=== PATIENT | male | born 1960 | race Caucasian/White ===

== ENCOUNTER 2016-03-16 13:44 | Inpatient (IN) | payer OTHER ==
[~2016-03-16] VITALS: Ht 167.6 cm; Wt 86.4 kg
[2016-03-16] MEDS ORDERED: FLUO20CA38 PO (20:05)
[2016-03-16] MEDS ORDERED: SOD CHLORIDE 0.9% 1,000 ML IV STA (20:14)
[2016-03-16] MEDS ORDERED: ENALAPRILAT 1.25 MG INJ IV ONE (20:30)
--- NOTE | 2016-03-16 20:46 | RADRPT ---
PROCEDURE: XR Chest AP portable CLINICAL INDICATION: Abdominal pain TECHNIQUE: An AP portable radiograph of the chest was submitted. COMPARISON: None. FINDINGS: Support Hardware: None Cardiovascular: The cardiovascular silhouette appears unremarkable. Lung [place]: The lung [place]on appear clear with no nodule, alveolar infiltrate, for a interstitial pr ominence evident. Pleural Spaces: No pneumothorax or pleural effusion is identified. Osseous Structures: Degenerative changes are seen within the mid thoracic spine. Soft Tissues: The soft tissues appear unremarkable. IMPRESSION: Unremarkable portable chest. Physician Sarah Date Time Electronically viewed and signed by Physician Sarah on 03/16/2016 20:45 RH/
[2016-03-16] MEDS ORDERED: ONDANSETRON 4 MG INJ IV STA (21:17)
[2016-03-16] MEDS ORDERED: morphine 4 MG/ML VIAL IV STA (21:17)
[2016-03-16 21:18] LABS: ADD SCAN DIFF NO
[2016-03-16 21:23] LABS: BASOPHILS % 0.3 % (0.0-2.0); EOSINOPHILS # 0.8 10^3/ul (0.0-0.5); EOSINOPHILS % 8.8 % (0.0-7.0); HEMATOCRIT 48.3 % (42.0-52.0); HEMOGLOBIN 16.2 g/dl (14.0-18.0); LYMPHOCYTES # 2.2 10^3/ul (0.8-2.9); LYMPHOCYTES % 25.5 % (15.0-51.0); MEAN CORPUSCULAR HEMOGLOBIN 30.2 pg (29.0-33.0); MEAN CORPUSCULAR HGB CONC 33.5 g/dl (32.0-37.0); MEAN CORPUSCULAR VOLUME 89.9 fl (82.0-101.0); MEAN PLATELET VOLUME 10.7 fl (7.4-10.4); MONOCYTE # 0.6 10^3/ul (0.3-0.9); MONOCYTES % 7.2 % (0.0-11.0); PLATELET COUNT 249 10^3/UL (140-415); RED BLOOD COUNT 5.37 10^6/ul (4.70-6.10); RED CELL DISTRIBUTION WIDTH 12.9 % (11.5-14.5); WHITE BLOOD COUNT 8.6 10^3/ul (4.8-10.8)
[2016-03-16 21:31] LABS: INR 0.9; PROTIME 12.1 Sec (12.2-14.2); PT RATIO 0.9
[2016-03-16 21:34] LABS: ALBUMIN 4.1 g/dl (3.3-4.9); CHLORIDE 103 mmol/L (97-110); SODIUM 142 mmol/L (135-144)
[2016-03-16 21:37] LABS: ALBUMIN/GLOBULIN RATIO 1.46; ALKALINE PHOSPHATASE 70 IU/L (42-121); ANION GAP 16 (8-16); ASPARTATE AMINO TRANSFERASE 37 IU/L (15-46); BILIRUBIN,INDIRECT 0.2 mg/dl (0-1.1); BILIRUBIN,TOTAL 0.2 mg/dl (0.2-1.3); BLOOD UREA NITROGEN 20 mg/dl (7-20); CARBON DIOXIDE 27 mmol/L (21-31); CREATININE 0.67 mg/dl (0.61-1.24); TOTAL PROTEIN 6.9 g/dl (6.1-8.1)
[2016-03-16 21:38] LABS: ALANINE AMINOTRANSFERASE 31 IU/L (13-69); CALCIUM 9.3 mg/dl (8.4-10.2); GLUCOSE 162 mg/dl (70-220)
[2016-03-16 21:50] LABS: TROPONIN-I < 0.012 ng/ml (0.00-0.12)
[2016-03-16] MEDS ORDERED: SOD CHLORIDE 0.9% 100 ML ONE (21:56)
[2016-03-16] MEDS ORDERED: IOHEXOL 0 ML ONE (21:56)
[2016-03-16] MEDS ORDERED: IOHEXOL 300MG/ML 150 ML BTL ONE (21:57)
--- NOTE | 2016-03-16 22:33 | RADRPT ---
AMENDMENT: 03/16/2016 11:02:59 PM Edgardo Allan M.D Additional clinical history of recent acupuncture treatment provided. Evaluate for soft tissue or e pidural abscess. No soft tissue abscess or gross evidence of acute inflammatory process. Minimal subcutaneous soft t issue stranding in the left paraspinal mass lateral to the midline and a left at approximately the l evel of T1. Correlate clinically with site of recent acupuncture treatment. No gross evidence of epidural abscess. Evaluation is limited given the type of examination. If the re is high clinical concern for epidural abscess. MRI would be more sensitive for further evaluatio n. Results were discussed with Gurdeep Chu 03/16/2016 11:02:37 PM . PROCEDURE: CTA Neck. CLINICAL INDICATION: Bilateral arm paresthesias. TECHNIQUE: The study was performed utilizing a multidetector CT scanner. Direct spiral 1 mm axial sections were obtained through the neck with the use of 120 ml Omnipaque 300 intravenous contrast m aterial. Coronal and sagittal as well as maximal intensity projection reformations were obtained.CT DI: 18.18 mGy and DLP: 748.89 mGy.cm.One or more of the following dose reduction techniques were uti lized: Automated exposure control, adjustment of the mA and/or kV according to patient size, use of iterative reconstruction technique. COMPARISON: No prior studies are available for comparison. FINDINGS: Aortic arch: The aortic arch is normal in caliber. Atherosclerotic calcification of the aortic arch. Normal appea spencer of the origin of the great vessels. Common carotid arteries: The common carotid arteries are patent and normal in caliber bilaterally. Internal carotid arteries: JIL/ECA: Normal appearance of the internal carotid artery bulb. The distal internal carotid artery is patent and normal in caliber. Rule marked tortuosity of the distal extracranial rule internal carotid yasir ry.. No evidence of hemodynamically significant stenosis. External carotid artery and its branches are normal patent and normal in caliber. LICA/ECA : Normal appearance of the internal carotid artery bulb. The distal internal carotid artery is patent and normal in caliber. Moderate tortuosity of the proximal internal carotid artery. No evidence of hemodynamically significant stenosis. External carotid artery and its branches are normal patent an d normal in caliber. Vertebral arteries: The vertebral arteries are patent and normal in caliber. Dominant left vertebral artery. IMPRESSION: Unremarkable CT angiogram of the extracranial carotid vasculature. RPTAT:AAJJ Physician Mariam Date Time Electronically viewed and signed by Castillo Allan Physician on 03/16/2016 23:04 ALEXANDRA/
[2016-03-16] MEDS ORDERED: HYDROmorphONE 1 MG/ML SYG IV STA (22:36)
--- NOTE | 2016-03-16 22:44 | RADRPT ---
PROCEDURE: CTA Brain. CLINICAL INDICATION: Evaluate for epidural abscess. TECHNIQUE: The study was performed utilizing a multidetector CT scanner. Direct spiral 0.65 mm ax ial sections were obtained through the intracranial vasculature with the use of 120 ml of Omnipaque 300 nonionic intravenous contrast material. Coronal and sagittal MPRs as well as maximal intensity projection reformations were obtained. 3D images were also made. The CTDIvol is 18.18 mGy and th e DLP is 748.89 mGycm. One or more of the following dose reduction techniques were utilized: Automa óscar exposure control, adjustment of the mA and/or kV according to patient size, use of iterative rec onstruction technique. COMPARISON: No prior studies are available for comparison. FINDINGS: No abnormal extra-axial fluid collection or pathologic enhancement to suggest epidural abscess or in tracranial enhancing parenchymal lesion. The internal carotid arteries are patent and normal in caliber. The anterior cerebral and middle ce rebral arteries are patent and normal in caliber. The anterior and posterior communicating arteries are patent. The posterior cerebral arteries are patent and normal in caliber. The basilar artery and visualized cerebellar arteries are patent and normal in caliber The vertebral arteries are patent and normal in caliber. Dominant left vertebral artery . No intracranial aneurysm or vascular malformation is identified. IMPRESSION: 1. No evidence of epidural abscess, abnormal extra-axial collection or parenchymal pathologic enhanc ement or mass. 2. Normal CT angiogram of the intracranial vasculature. RPTAT:AAJJ Physician Mariam Date Time Electronically viewed and signed by Physician Mariam on 03/16/2016 22:43 ALEXANDRA/
--- NOTE | 2016-03-16 23:19 | ERA ---
ER Documentation Chief Complaint Date/Time DATE: 03/16/16 TIME: 23:02 Chief Complaint numbness to hands/feet; burning in extremities with joint pain HPI 56-year-old man with a long history of sciatica presents with 5 days of new onset bilateral upper extremity weakness and paresthesia, which began about 5 days after beginning acupuncture therapy. He states acupuncture needles were placed to the cervical spine and by his third session, which was 5 days ago he began experiencing weakness to his arms and hands as well as paresthesias. He denies previous episodes of weakness or paresthesias, denies neck pain, no headache or blurry vision, no chest pain or shortness of breath, no fevers or chills. ROS All systems reviewed and are negative except as per history of present illness. Medications Home Meds Reported Medications Fluoxetine Hcl* (Prozac*) 20 Mg Capsule, 20 MG PO DAILY, CAP 03/16/16 Allergies Allergies: Coded Allergies: No Known Allergy (Unverified , 03/16/16) PMhx/Soc Chronic back pain and sciatica, anxiety Medical and Surgical Hx: pt denies Medical Hx, pt denies Surgical Hx Hx Alcohol Use: No Hx Substance Use: No Hx Tobacco Use: No Smoking Status: Never smoker FmHx Family History: No diabetes Physical Exam Vitals Vital Signs Date Time Temp Pulse Resp B/P Pulse Ox O2 Delivery O2 Flow Rate FiO2 03/16/16 19:50 98.3 78 20 157/100 100 Room Air 03/16/16 19:47 76 20 157/100 98 Room Air 03/16/16 13:50 99.2 86 18 168/98 97 Physical Exam GENERAL: Well-developed, well-nourished, well-hydrated, in no apparent distress , looks nontoxic in appearance. Afebrile HEENT: Moist mucous membranes, pink conjunctiva, no cervical spine tenderness or step-off deformities, no goiter, no jaundice or icterus, extraocular movements intact without pain. No submandibular induration, and no pharyngeal erythema NEURO: Alert and oriented 3, cranial nerves II through XII intact bilaterally, pupils equal round reactive to light, strength is 4/5 to the upper extremities bilaterally with a diminished bartenders strength bilaterally both flexion and extension to the elbow and shoulders are affected. CARDIAC: Regular rate and rhythm, no murmurs rubs or gallops LUNGS: Clear bilaterally no wheezing crackles or stridor ABDOMEN: Soft nontender, no guarding, no rigidity, no rebound, no psoas sign no obturator sign. Normoactive bowel sounds. No pulsatile or tender abdominal mass was noted. SKIN: Warm and dry to touch, no abrasions, contusions, or hematomas, no lacerations, no ecchymosis, no target lesions, and without ulcers. There is no soft tissue erythema or edema to the posterior neck EXTREMITIES: No clubbing cyanosis or edema, calves are bilaterally symmetrical, no Homans sign, no popliteal cord sign. Distal pulses equal and bilateral PSYCH: Normal affect without agitation or irritability Result Diagram: 03/16/16201403/16/162014 Results 24 hrs Laboratory Tests Test 03/16/16 20:15 Alanine Aminotransferase (ALT/SGPT) 31IU/L Albumin 4.1g/dl Albumin/Globulin Ratio 1.46 Alkaline Phosphatase 70IU/L Anion Gap 16 Aspartate Amino Transf (AST/SGOT) 37IU/L Basophils # 0.010^3/ul Basophils % 0.3% Blood Urea Nitrogen 20mg/dl Calcium Level 9.3mg/dl Carbon Dioxide Level 27mmol/L Chloride Level 103mmol/L Creatinine 0.67mg/dl Direct Bilirubin 0.00mg/dl Eosinophils # 0.810^3/ul Eosinophils % 8.8% Globulin 2.80g/dl Glucose Level 162mg/dl Hematocrit 48.3% Hemoglobin 16.2g/dl INR International Normalized Ratio 0.90 Indirect Bilirubin 0.2mg/dl Lipase 98U/L Lymphocytes # 2.210^3/ul Lymphocytes % 25.5% Mean Corpuscular Hemoglobin 30.2pg Mean Corpuscular Hemoglobin Concent 33.5g/dl Mean Corpuscular Volume 89.9fl Mean Platelet Volume 10.7fl Monocytes # 0.610^3/ul Monocytes % 7.2% Neutrophils # 5.010^3/ul Neutrophils % 58.0% Nucleated Red Blood Cells # 0.010^3/ul Nucleated Red Blood Cells % 0.0/100WBC Platelet Count 80202^3/UL Potassium Level 4.0mmol/L Prothrombin Time 12.1Sec Prothrombin Time Ratio 0.9 Red Blood Count 5.3710^6/ul Red Cell Distribution Width 12.9% Sodium Level 142mmol/L Total Bilirubin 0.2mg/dl Total Protein 6.9g/dl Troponin I < 0.012ng/ml White Blood Count 8.610^3/ul Current Medications Medications (Trade) Dose Ordered Sig/Hannah Route PRN Reason Start Time Stop Time Status Last Admin Dose Admin Sodium Chloride (NS) 1,000 ml @ 1,000 mls/hr Q1H STAT IV 03/16/16 20:14 03/16/16 21:13 DC 03/16/16 20:37 Enalaprilat (Vasotec Iv) 1.25 mg ONCE ONCE IV 03/16/16 20:30 03/16/16 20:31 DC 03/16/16 20:38 Morphine Sulfate (morphine) 4 mg ONCE STAT IV 03/16/16 21:17 03/16/16 21:18 DC 03/16/16 21:39 Ondansetron HCl (Zofran Inj) 4 mg ONCE STAT IV 03/16/16 21:17 03/16/16 21:18 DC 03/16/16 21:39 IV Flush 10 ml 10 ml STK-MED ONCE .ROUTE 03/16/16 21:56 03/16/16 21:57 DC 03/16/16 22:20 Sodium Chloride 100 ml @ ud STK-MED ONCE .ROUTE 03/16/16 21:56 03/16/16 21:57 DC 03/16/16 22:21 Iohexol (Omnipaque) 0 ml @ ud STK-MED ONCE .ROUTE 03/16/16 21:56 03/16/16 21:57 DC Iohexol (Omnipaque 300mg/ ml) 150 ml STK-MED ONCE .ROUTE 03/16/16 21:57 03/16/16 21:58 DC 03/16/16 22:21 Hydromorphone HCl (Dilaudid) 1 mg ONCE STAT IV 03/16/16 22:36 03/16/16 22:37 DC Procedures/[facility] IV line was established patient was placed on cardiac/vascular sonographer rhythm strip revealed a sinus rhythm at about 60 bpm with upright P and T waves. Patient was afebrile. EKG performed, read by me: 64 bpm, normal sinus rhythm, normal axis, no acute ST segment changes, narrow QRS complex, with good R-wave progression in precordial leads. One AP view of the chest performed, read by me reveals no acute infiltrates, normal mediastinum, sharp costophrenic and cardiac borders, no air under the diaphragm. Otherwise unremarkable chest x-ray. Patient was extremely hypertensive at presentation I treated him here with enalapril 1.25 mg IV 1. CBC and electrolytes are normal, liver function tests are normal, troponin was negative CT angiogram of the brain and neck was performed, although not the most optimal study it was an initial screening exam to help rule in a spinal epidural abscess or soft tissue infection of the posterior neck. Critical cervical spine stenosis could also be diagnosed with this study. Please refer to radiologist dictation for full report, although no inflammatory or infectious pathology was noted. An obvious cervical spinal canal stenosis could not be identified. Recommendation was for MR imaging of the cervical spine, which I immediately ordered. I consulted the neurosurgeon applications analyst Dr. Liriano, who also recommended MRI. I will call him with the results. Patient received 1 L normal saline intravenously, morphine 4 mg IV, Zofran 4 mg IV with good response. For continued low back pain I administered hydromorphone 1 mg IV 1. Patient will be admitted pending MRI results. Besides critical cervical spinal canal stenosis or spinal epidural abscess, polyneuropathy and other inflammatory conditions have been considered. Further studies to be deferred to inpatient team in consultation with neurosurgeon and neurologist. Departure Diagnosis: Primary Impression: Bilateral arm weakness Additional Impressions: Paresthesias Lumbago with sciatica Qualified Code: M54.41 - Chronic bilateral low back pain with right-sided sciatica Hypertension Qualified Code: I10 - Essential hypertension Condition: SANG Leon MD Mar 16, 2016 23:13
--- NOTE | 2016-03-17 02:05 | RADRPT ---
PROCEDURE: MRI cervical spine without contrast CLINICAL INDICATION: Bilateral upper extremity weakness. TECHNIQUE: MRI examination of the cervical spine was performed on a high-field MRI system. Sagitt al T1, T2, T2 fat suppression, axial GRE and T2-weighted images were produced. COMPARISON: CT angio neck 03/16/2016 FINDINGS: There is maintenance of height of the vertebral bodies. There is reversal of the normal cervical lo rdosis. Alignment is otherwise maintained. There is reactive marrow changes at the C6-7 disk space compatible with chronic degenerative changes. Bone marrow signal intensity is otherwise within carrie l limits. No masses are identified within the spinal canal. The prevertebral soft tissues are un remarkable. The foramen Magnum is unremarkable. C2/3: The disk space is normal. There is no disk bulge or protrusion. There is no central canal o r neuroforaminal stenosis. C3/4: There is mild disk space narrowing. There is a prominent diffuse posterior disk osteophyte c omplex measuring up to 3 mm with effacement and deformity of the ventral aspect of the cervical cord .. There is moderate central canal stenosis. There is loss of CSF surrounding the cord. There is t here is no definite neural foraminal stenosis. There is abnormal hyperintense intramedullary signal within the cervical cord centered at the C3-4 disk protrusion compatible with cord edema. C4/5: The disk space is normal. There is no disk bulge or protrusion. There is no central canal o r neuroforaminal stenosis. C5/6: There is mild disk space narrowing. There is mild posterior disk bulge eccentric to the left ventral aspect of thecal sac, abutting the left ventral cord. There is mild ventral cord deformity . There is CSF posterior to cord. Mild central canal and left neural foraminal stones. There is n o right neural foraminal stenosis.. C6/7: There is disk space narrowing with endplate reactive changes described above. There is mild diffuse posterior disk bulge. Mild central canal stenosis. Mild to moderate right neural foraminal stenosis. There is no left neural foraminal stenosis.. C7/T1: The disk space is normal. There is no disk bulge or protrusion. There is no central canal or neuroforaminal stenosis. IMPRESSION: 1. Multilevel disk degenerative changes. 2. Focal posterior disk osteophyte complex at C3-4 with associated posterior disk protrusion causin g canal stenosis and cord compression. Associated cord edema. 3. Smaller posterior disk bulge at C5-6 causing mild ventral cord for a without edema. Associated mild central canal and left neural foraminal cells. 4. C6-7 with posterior disk bulge with mild central canal and mild to moderate right neural foramin al stenosis. 5. Evaluation for epidural abscess is limited by lack of intravenous contrast material. No abnorma l soft tissue mass within the spinal canal to suggest epidural abscess. 6. Reversal normal cervical lordosis most commonly seen with muscle spasm. Findings discussed with Dr. Cerrato 03/17/2016 at 0200 RPTAT: HMVK .Yunior Vuong MD, MD Date Time Electronically viewed and signed by .Yunior Vuong MD, on 03/17/2016 02:05 .K/
[2016-03-17 02:26] VITALS: TEMP 98
[2016-03-17 02:55] VITALS: BP 130/102; RESP 18
[2016-03-17] MEDS ORDERED: ACETAMINOPHEN 325 MG TAB PO PRN (03:00)
[2016-03-17] MEDS: morphine 4 MG/ML VIAL IV PRN ×4 (03:28→21:21)
[2016-03-17 03:57] VITALS: Ht 167.6 cm; Wt 86.4 kg
[2016-03-17 06:18] LABS: ADD SCAN DIFF NO; BASOPHILS % 0.3 % (0.0-2.0); EOSINOPHILS # 0.7 10^3/ul (0.0-0.5); EOSINOPHILS % 9.3 % (0.0-7.0); HEMATOCRIT 44.8 % (42.0-52.0); HEMOGLOBIN 15.1 g/dl (14.0-18.0); LYMPHOCYTES # 1.8 10^3/ul (0.8-2.9); LYMPHOCYTES % 23.1 % (15.0-51.0); MEAN CORPUSCULAR HEMOGLOBIN 30.6 pg (29.0-33.0); MEAN CORPUSCULAR HGB CONC 33.7 g/dl (32.0-37.0); MEAN CORPUSCULAR VOLUME 90.7 fl (82.0-101.0); MEAN PLATELET VOLUME 10.3 fl (7.4-10.4); MONOCYTE # 0.5 10^3/ul (0.3-0.9); MONOCYTES % 6.1 % (0.0-11.0); NEUTROPHIL # 4.8 10^3/ul (1.6-7.5); NEUTROPHILS % 60.9 % (39.0-77.0); PLATELET COUNT 237 10^3/UL (140-415); RED BLOOD COUNT 4.94 10^6/ul (4.70-6.10); RED CELL DISTRIBUTION WIDTH 12.8 % (11.5-14.5); WHITE BLOOD COUNT 7.9 10^3/ul (4.8-10.8)
--- NOTE | 2016-03-17 06:37 | HP ---
Date/Time of Note Date/Time of Note DATE: 03/17/16 TIME: 06:26 Assessment/Plan VTE Prophylaxis VTE Prophylaxis Intervention: SCD's Assessment/Plan Assessment/Plan IMPRESSION 1. Cervical Cord Compression with associated edema 2. Bilateral Upper Extremity Weakness/Paresthesia: 2/2 above 3. Hx of Anxiety 4. Hx of Pre-Diabetes PLAN Will start Decadron Pain mgmt Awaiting Neurosurg Evaluation PRN anti-anxiety Check A1c HPI/ROS Admit Date/Time Admit Date/Time Mar 16, 2016 at 22:58 Hx of Present Illness This is a 56-year-old man with hx of anxiety, Pre-diabetes and a long history of sciatica presents with 5 days of new onset bilateral upper extremity weakness and paresthesia, which began about 5 days after beginning acupuncture therapy. He states acupuncture needles were placed to the cervical spine and by his third session, which was 5 days ago he began experiencing weakness to his arms and hands as well as paresthesias. He has been using wheel chair. He denies previous episodes of weakness or paresthesias, denies neck pain, no headache or blurry vision, no chest pain or shortness of breath, no fevers or chills. In ER: CT Head nad Neck was neg for acute findings, but Cervical MRI showed the following: Dr. Liriano the neurosurgeon was consulted by ER physician. 1. Multilevel disk degenerative changes. 2. Focal posterior disk osteophyte complex at C3-4 with associated posterior disk protrusion causing canal stenosis and cord compression. Associated cord edema. 3. Smaller posterior disk bulge at C5-6 causing mild ventral cord for a without edema. Associated mild central canal and left neural foraminal cells. 4. C6-7 with posterior disk bulge with mild central canal and mild to moderate right neural foraminal stenosis. 5. Evaluation for epidural abscess is limited by lack of intravenous contrast material. No abnormal soft tissue mass within the spinal canal to suggest epidural abscess. 6. Reversal normal cervical lordosis most commonly seen with muscle spasm. PMH/Family/Social Past Medical History 1. sciatica 2. anxiety 3. pre-diabetes Medical History: other Social History Alcohol Use: none Smoking Status: Never smoker Drug Use: none Exam/Review of Systems Vital Signs Vitals Vital Signs Date Time Temp Pulse Resp B/P Pulse Ox O2 Delivery O2 Flow Rate FiO2 03/17/16 02:55 18 130/102 99 03/17/16 02:54 97.6 62 03/17/16 02:26 Room Air Exam Constitutional: alert, oriented, well developed Head: atraumatic, normocephalic Eyes: EOMI, PERRL Neck: non-tender, supple Respiratory: clear to auscultation, normal air movement Cardiovascular: nl pulses, regular rate and rhythm Gastrointestinal: non-tender, soft Extremities: normal pulses Neurological: other (bilateral upper ext with decreased strength) Labs Result Diagram: 03/17/1651103/16/162014 Medications Medications Current Medications Morphine Sulfate (morphine) 4 mg Q4H PRN IV SEVERE PAIN Last administered on t 03:28; Admin Dose 4 MG; Start 03/17/16 at 03:00 Acetaminophen (Tylenol Tab) 650 mg Q6H PRN PO PAIN AND OR ELEVATED TEMP; Start 03/17/16 at 03:00 Acetaminophen/ Hydrocodone Bitart ([place] (5/325)) 1 tab Q6H PRN PO MODERATE PAIN; Start 03/17/16 at 03:00 Heparin Sodium (Porcine) (Heparin (5000 Units/0.5 ml)) 5,000 unit BID SC ; Start 03/17/16 at 09:00 Fluoxetine HCl (Prozac) 20 mg DAILY PO ; Start 03/17/16 at 09:00 ONIEL NESS MD Mar 17, 2016 06:37
[2016-03-17] MEDS: DEXAMETHASONE 4 MG/ML 1 ML INJ IV SCH ×4 (06:39→23:12)
[2016-03-17 06:51] LABS: ALBUMIN 3.6 g/dl (3.3-4.9)
[2016-03-17 06:52] LABS: POTASSIUM 3.9 mmol/L (3.5-5.1)
[2016-03-17 06:54] LABS: ALBUMIN/GLOBULIN RATIO 1.56; BILIRUBIN,INDIRECT 0.2 mg/dl (0-1.1); BILIRUBIN,TOTAL 0.2 mg/dl (0.2-1.3); CREATININE 0.68 mg/dl (0.61-1.24); TOTAL PROTEIN 5.9 g/dl (6.1-8.1)
[2016-03-17 06:55] LABS: CALCIUM 8.6 mg/dl (8.4-10.2); CHOL/HDL RATIO 3.2 RATIO
[2016-03-17 08:02] VITALS: BP 127/82; PULSE 58; RESP 16
[2016-03-17] MEDS: FLUOXETINE 20 MG CAP PO SCH (08:30)
[2016-03-17] MEDS ORDERED: HEPARIN 5,000 UNIT/0.5 ML SYG SC SCH (09:00)
[2016-03-17] MEDS: HYDROCODONE/APAP (5/325) TAB PO PRN ×2 (09:27→19:21)
--- NOTE | 2016-03-17 10:05 | CONS ---
Date/Time of Note Date/Time of Note DATE: 03/17/16 TIME: 09:57 Assessment/Plan Assessment/Plan Additional Assessment/Plan Clinical picture and imaging suggestive of central cord syndrome. I had a long conversation with the patient in which I recommend anterior cervical discectomy and fusion at C3-4; he may also benefit from ACDF at C5-6 given underlying radicular complaints but that is less urgent. Given subacute clinical presentation I do not believe surgery is emergent, but I have recommended that it be treated urgently (ie this admission). He understands the risks of surgery to include esophageal and vocal cord/ nerve injury, CSF leak, wound infection, and neurologic deficit or even paralysis. All questions were answered. The patient stated that he is unwilling to agree to this recommended plan until he discusses with his and family. He will let us know his decision. In the meantime I will try to secure OR time Sunday. 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 He states that his pain radiates into the shoulder bilaterally and he has numbness in the firt three digits of both hands at baseline (the complaints for which he sought acupuncture tx). After a recent fall he noticed promotional advertising assistant weakness. MRI in the ER shows C5-6 degenerative disc disease and foraminal stenosis but also a large right sided C3-4 HNP with cord compression and cord signal change at this level. He denies any PMHX. 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 Lower extremities 5 /5 bilaterally. reflexes +++ & Barrera's sign is present. No clonus. Results Result Diagram: 03/17/16 0512 03/17/16511 Results 24 hrs Laboratory Tests Test 03/16/16 20:15 03/17/16 05:12 Alanine Aminotransferase (ALT/SGPT) 31 34 Albumin 4.1 3.6 Albumin/Globulin Ratio 1.46 1.56 Alkaline Phosphatase 70 56 Anion Gap 16 14 Aspartate Amino Transf (AST/SGOT) 37 27 Basophils # 0.0 0.0 Basophils % 0.3 0.3 Blood Urea Nitrogen 20 18 Calcium Level 9.3 8.6 Carbon Dioxide Level 27 29 Chloride Level 103 104 Creatinine 0.67 0.68 Direct Bilirubin 0.00 0.00 Eosinophils # 0.8 H 0.7 H Eosinophils % 8.8 H 9.3 H Globulin 2.80 2.30 Glucose Level 162 100 # Hematocrit 48.3 44.8 Hemoglobin 16.2 15.1 INR International Normalized Ratio 0.90 Indirect Bilirubin 0.2 0.2 Lipase 98 Lymphocytes # 2.2 1.8 Lymphocytes % 25.5 23.1 Mean Corpuscular Hemoglobin 30.2 30.6 Mean Corpuscular Hemoglobin Concent 33.5 33.7 Mean Corpuscular Volume 89.9 90.7 Mean Platelet Volume 10.7 H 10.3 Monocytes # 0.6 0.5 Monocytes % 7.2 6.1 Neutrophils # 5.0 4.8 Neutrophils % 58.0 60.9 Nucleated Red Blood Cells # 0.0 0.0 Nucleated Red Blood Cells % 0.0 0.0 Platelet Count 249 237 Potassium Level 4.0 3.9 Prothrombin Time 12.1 L Prothrombin Time Ratio 0.9 Red Blood Count 5.37 4.94 Red Cell Distribution Width 12.9 12.8 Sodium Level 142 143 Total Bilirubin 0.2 0.2 Total Protein 6.9 5.9 #L Troponin I < 0.012 White Blood Count 8.6 7.9 Cholesterol Level 175 Cholesterol/HDL Ratio 3.2 HDL Cholesterol 54 Hemoglobin A1c 6.1 H LDL Cholesterol, Calculated 105 Triglycerides Level 81 Medications Medications Current Medications Morphine Sulfate (morphine) 4 mg Q4H PRN IV SEVERE PAIN Last administered on t 08:30; Admin Dose 4 MG; Start 03/17/16 at 03:00 Acetaminophen (Tylenol Tab) 650 mg Q6H PRN PO PAIN AND OR ELEVATED TEMP; Start 03/17/16 at 03:00 Acetaminophen/ Hydrocodone Bitart ([place] (5/325)) 1 tab Q6H PRN PO MODERATE PAIN Last administered on 03/17/16 09:27; Admin Dose 1 TAB; Start 03/17/16 at 03:00 Fluoxetine HCl (Prozac) 20 mg DAILY PO Last administered on 03/17/16 08:30; Admin Dose 20 MG; Start 03/17/16 at 09:00 Dexamethasone (Decadron) 4 mg Q6 IV Last administered on 03/17/16 06:39; Admin Dose 4 MG; Start 03/17/16 at 06:30 MARCIA YOUNG MD Mar 17, 2016 10:04
--- NOTE | 2016-03-17 14:15 | PN ---
Date/Time of Note Date/Time of Note DATE: 03/17/16 TIME: 14:02 Assessment/Plan VTE Prophylaxis VTE Prophylaxis Intervention: SCD's Assessment/Plan Assessment/Plan 1. Cervical Cord Compression, needs surgery, I had a long talk with the patient about the risk and complications from cord compression, patient is not made his decision yet 2. Multilevel disk degenerative changes. follow up with Dr. Liriano 3. Hx of Anxiety 4. Hx of Pre-Diabetes Subjective 24 Hr Interval Summary Free Text/Dictation stronger on both arms today, still has poor balance on walking and tingling on left lower extremity Exam/Review of Systems Vital Signs Vitals Vital Signs Date Time Temp Pulse Resp B/P Pulse Ox O2 Delivery O2 Flow Rate FiO2 03/17/16 08:02 98.8 58 16 127/82 97 Room Air Exam Constitutional: alert, oriented, well developed Head: atraumatic, normocephalic Eyes: EOMI, PERRL, nl conjunctiva, nl lids, nl sclera ENMT: nl external ears & nose, nl lips & teeth, nl nasal mucosa & septum Neck: non-tender, supple Respiratory: clear to auscultation, normal air movement, No congested cough, No crackles/rales, No diminished breath sounds, No intercostal retraction, No labored breathing, No other, No respirations, No tactile fremitus, No wheezing Cardiovascular: nl pulses, regular rate and rhythm, No S3, No S4, No bruits, No diastolic murmur, No edema, No gallop, No irregular rhythm, No jugular venous distention (JVD), No murmurs/extra sounds, No other, No rub, No systolic murmur Gastrointestinal: nl liver, spleen, non-tender, soft, No ascites, No bowel sounds, No distended, No firm, No hepatomegaly, No mass , No other, No rebound or guarding, No splenomegaly, No surgical scars, No tender Musculoskeletal: nl extremities to inspection Neurological: SENIOR CONSTRUCTION ESTIMATOR II-XII intact, nl mental status, nl speech, other (both hands 4/5) Skin: nl turgor, rash or lesions Lymph: nl lymph nodes Results Result Diagram: 03/17/1651103/17/1612 Results 24 hrs Laboratory Tests Test 03/16/16 20:15 03/17/16 05:12 Alanine Aminotransferase (ALT/SGPT) 31 34 Albumin 4.1 3.6 Albumin/Globulin Ratio 1.46 1.56 Alkaline Phosphatase 70 56 Anion Gap 16 14 Aspartate Amino Transf (AST/SGOT) 37 27 Basophils # 0.0 0.0 Basophils % 0.3 0.3 Blood Urea Nitrogen 20 18 Calcium Level 9.3 8.6 Carbon Dioxide Level 27 29 Chloride Level 103 104 Creatinine 0.67 0.68 Direct Bilirubin 0.00 0.00 Eosinophils # 0.8 H 0.7 H Eosinophils % 8.8 H 9.3 H Globulin 2.80 2.30 Glucose Level 162 100 # Hematocrit 48.3 44.8 Hemoglobin 16.2 15.1 INR International Normalized Ratio 0.90 Indirect Bilirubin 0.2 0.2 Lipase 98 Lymphocytes # 2.2 1.8 Lymphocytes % 25.5 23.1 Mean Corpuscular Hemoglobin 30.2 30.6 Mean Corpuscular Hemoglobin Concent 33.5 33.7 Mean Corpuscular Volume 89.9 90.7 Mean Platelet Volume 10.7 H 10.3 Monocytes # 0.6 0.5 Monocytes % 7.2 6.1 Neutrophils # 5.0 4.8 Neutrophils % 58.0 60.9 Nucleated Red Blood Cells # 0.0 0.0 Nucleated Red Blood Cells % 0.0 0.0 Platelet Count 249 237 Potassium Level 4.0 3.9 Prothrombin Time 12.1 L Prothrombin Time Ratio 0.9 Red Blood Count 5.37 4.94 Red Cell Distribution Width 12.9 12.8 Sodium Level 142 143 Total Bilirubin 0.2 0.2 Total Protein 6.9 5.9 #L Troponin I < 0.012 White Blood Count 8.6 7.9 Cholesterol Level 175 Cholesterol/HDL Ratio 3.2 HDL Cholesterol 54 Hemoglobin A1c 6.1 H LDL Cholesterol, Calculated 105 Triglycerides Level 81 Medications Medications Current Medications Morphine Sulfate (morphine) 4 mg Q4H PRN IV SEVERE PAIN Last administered on 12:38; Admin Dose 4 MG; Start 03/17/16 at 03:00 Acetaminophen (Tylenol Tab) 650 mg Q6H PRN PO PAIN AND OR ELEVATED TEMP; Start 03/17/16 at 03:00 Acetaminophen/ Hydrocodone Bitart ([place] (5/325)) 1 tab Q6H PRN PO MODERATE PAIN Last administered on 2/10/17at 09:27; Admin Dose 1 TAB; Start 03/17/16 at 03:00 Fluoxetine HCl (Prozac) 20 mg DAILY PO Last administered on 03/17/16 08:30; Admin Dose 20 MG; Start 03/17/16 at 09:00 Dexamethasone (Decadron) 4 mg Q6 IV Last administered on 03/17/16 12:38; Admin Dose 4 MG; Start 03/17/16 at 06:30 MI BUSTOS MD Mar 17, 2016 14:12
[2016-03-17 19:21] VITALS: BP 145/93; PULSE 81; RESP 18
[2016-03-18] MEDS: HYDROCODONE/APAP (5/325) TAB PO PRN ×4 (04:00→22:22)
[2016-03-18] MEDS: DEXAMETHASONE 4 MG/ML 1 ML INJ IV SCH ×3 (06:01→18:08)
[2016-03-18 07:52] VITALS: BP 165/101; RESP 18
[2016-03-18] MEDS: FLUOXETINE 20 MG CAP PO SCH (09:47)
[2016-03-18] MEDS: morphine 4 MG/ML VIAL IV PRN ×3 (09:48→19:49)
[2016-03-18 11:21] VITALS: BP 140/97; PULSE 67
--- NOTE | 2016-03-18 16:35 | PN ---
DATE: 03/18/2016 INTERNAL MEDICINE FOLLOWUP SUBJECTIVE: Chart reviewed. Events noted. Patient is now agreeable to undergo surgery. Dr. Bryan wan will be informed about the decision. The patient also complains of constipation. PHYSICAL EXAMINATION: VITAL SIGNS: Blood pressure 140/97, pulse 67, respirations 18, temperature 98.8. HEENT: Pupils are equal and reactive to light. NECK: Supple. No JVD noted, no cervical adenopathy, no carotid bruits heard. LUNGS: Fair breath sounds bilaterally. CARDIOVASCULAR: S1, S2 normal. ABDOMEN: Soft, nontender. No organomegaly or masses noted. EXTREMITIES: No clubbing, cyanosis, or edema noted. NEUROLOGICAL: Overall strength in the upper extremity slowly improving. LABS: None today. IMPRESSION: 1. Cervical cord compression. 2. Severe multivite disk degenerative changes in cervical spine. 3. History of anxiety. 4. History of diabetes. 5. Elevated blood pressure. PLAN: 1. Dr. Liriano will be informed about the patient's decision to undergo surgery. 2. Clonidine p.r.n. 3. Laxatives. 4. Follow up lab 5. Discussed with RN in detail. Dictated By: EDWARD SOLANO MD, MA/GURU Conf#: [id number] DID#: [id number]
[2016-03-18 19:25] VITALS: BP 143/94; RESP 20
[2016-03-19] MEDS: DEXAMETHASONE 4 MG/ML 1 ML INJ IV SCH ×5 (00:27→23:18)
[2016-03-19] MEDS: morphine 4 MG/ML VIAL IV PRN ×4 (00:28→19:36)
[2016-03-19] MEDS: HYDROCODONE/APAP (5/325) TAB PO PRN ×3 (04:43→23:18)
[2016-03-19 07:45] VITALS: BP 157/102; RESP 18
[2016-03-19] MEDS: SENNA TAB PO SCH ×2 (08:36→20:29)
[2016-03-19] MEDS: FLUOXETINE 20 MG CAP PO SCH (08:36)
[2016-03-19] MEDS: DOCUSATE SODIUM 100 MG CAP PO SCH ×2 (08:36→20:28)
--- NOTE | 2016-03-19 11:07 | PN ---
DATE: 03/19/2016 INTERNAL MEDICINE FOLLOWUP SUBJECTIVE: Chart reviewed. No significant events noted. The patient currently on room air, satur ating 98%, and does not appear in acute distress. OBJECTIVE: VITAL SIGNS: Blood pressure 143/94, pulse 66, respirations 20, temperature 99.1. HEENT: Pupils are equal and reactive to light. NECK: Supple. No JVD noted, no cervical lymphadenopathy noted, no carotid bruits heard. LUNGS: Fair breath sounds bilaterally. CARDIOVASCULAR: S1, S2 normal. ABDOMEN: Soft, nontender. No organomegaly or masses noted. EXTREMITIES: No clubbing, cyanosis, or edema noted. LABORATORY DATA: No labs today. IMPRESSION: 1. Cervical cord compression. 2. Severe multilevel disk degenerative changes of the cervical spine. 3. History of anxiety. 4. History of diabetes. 5. Hypertension. RECOMMENDATIONS: 1. ____ will be planning on surgery early next week. 2. Clonidine p.r.n. 3. Laxatives. 4. Follow up labs. 5. Discussed with RN. Dictated By: EDWARD SOLANO MD, MA/GURU Conf#: [id number] DID#: [id number]
[2016-03-19] MEDS: D5-NS + KCL 20 MEQ 1,000 ML IV SCH (14:22)
[2016-03-19 20:27] VITALS: BP 135/91; RESP 18
[2016-03-20] MEDS: D5-NS + KCL 20 MEQ 1,000 ML IV SCH ×3 (00:30→10:30)
[2016-03-20] MEDS: morphine 4 MG/ML VIAL IV PRN ×4 (03:13→20:11)
[2016-03-20] MEDS: DEXAMETHASONE 4 MG/ML 1 ML INJ IV SCH ×3 (06:41→17:58)
[2016-03-20 07:19] VITALS: BP 158/110; RESP 18
[2016-03-20] MEDS: FLUOXETINE 20 MG CAP PO SCH (08:48)
[2016-03-20] MEDS: SENNA TAB PO SCH ×2 (09:00→20:15)
[2016-03-20] MEDS: DOCUSATE SODIUM 100 MG CAP PO SCH ×2 (09:00→20:15)
--- NOTE | 2016-03-20 10:40 | PN ---
Date/Time of Note Date/Time of Note DATE: 03/20/16 TIME: 10:37 Assessment/Plan VTE Prophylaxis VTE Prophylaxis Intervention: contraindicated (Leading risk bleeding risk) Lines/Catheters IV Catheter Type (from Nrsg): Peripheral IV Urinary Cath still in place: No Assessment/Plan Chief Complaint/Hosp Course Hospitalist coverage: S: Events noted O: Vital signs stable PE: No pallor adenopathy Regular no murmur rub gallop CTAB Bowel sounds positive, nontender, nondistended, no MRG No edema Neuro: Mild bilateral symmetrical upper extremity weakness A/P: 1. Cervical cord radiculopathy. Stable. For discectomy fusion. -Low periop risk, may proceed from medical standpoint. 2. C spine djd. 3. Ho anxiety. 4. Pre -diabetes. 5. Htn/metabolic syndrome. Problems: Exam/Review of Systems Vital Signs Vitals Vital Signs Date Time Temp Pulse Resp B/P Pulse Ox O2 Delivery O2 Flow Rate FiO2 03/20/16 07:19 98.3 55 18 158/110 98 03/17/16 19:21 Room Air Intake and Output 03/19/16 03/19/16 03/20/16 15:00 23:00 07:00 Intake Total 1540 ml 1150 ml Balance 1540 ml 1150 ml Results Result Diagram: 03/17/1651103/17/16511 Medications Medications Current Medications Morphine Sulfate (morphine) 4 mg Q4H PRN IV SEVERE PAIN Last administered on 03:13; Admin Dose 4 MG; Start 03/17/16 at 03:00 Acetaminophen (Tylenol Tab) 650 mg Q6H PRN PO PAIN AND OR ELEVATED TEMP; Start 03/17/16 at 03:00 Acetaminophen/ Hydrocodone Bitart ([place] (5/325)) 1 tab Q6H PRN PO MODERATE PAIN Last administered on 03/19/16 23:18; Admin Dose 1 TAB; Start 03/17/16 at 03:00 Fluoxetine HCl (Prozac) 20 mg DAILY PO Last administered on 03/20/16 08:48; Admin Dose 20 MG; Start 03/17/16 at 09:00 Dexamethasone (Decadron) 4 mg Q6 IV Last administered on 03/20/16 06:41; Admin Dose 4 MG; Start 03/17/16 at 06:30 Docusate Sodium (Colace) 100 mg BID PO Last administered on 03/19/16 08:36; Admin Dose 100 MG; Start 03/19/16 at 09:00 Senna 1 tab 1 tab BID PO Last administered on 03/19/16 08:36; Admin Dose 1 TAB ; Start 03/19/16 at 09:00 Potassium Chloride/Dextrose/ Sod Cl (D5-NS + KCl 20 Meq) 1,000 ml @ 100 mls/hr Q10H IV Last administered on 03/20/16 02:20; Admin Dose 100 MLS/HR; Start 01/21 at 14:30 CINDY KEY MD Mar 20, 2016 10:40
[2016-03-20] MEDS: HYDROCODONE/APAP (10/325) TAB PO PRN ×2 (18:02→22:08)
[2016-03-20 20:00] VITALS: BP 154/89; PULSE 63; RESP 18
[2016-03-21] MEDS: DEXAMETHASONE 4 MG/ML 1 ML INJ IV SCH ×5 (00:11→23:59)
[2016-03-21] MEDS: morphine 4 MG/ML VIAL IV PRN ×6 (00:11→20:18)
[2016-03-21] MEDS: D5-NS + KCL 20 MEQ 1,000 ML IV SCH ×3 (00:11→20:00)
[2016-03-21 06:44] LABS: BASOPHILS % 0.1 % (0.0-2.0); HEMATOCRIT 47.7 % (42.0-52.0); LYMPHOCYTES # 0.9 10^3/ul (0.8-2.9); LYMPHOCYTES % 9.9 % (15.0-51.0); MEAN CORPUSCULAR HEMOGLOBIN 30.9 pg (29.0-33.0); MEAN CORPUSCULAR HGB CONC 33.6 g/dl (32.0-37.0); MEAN PLATELET VOLUME 9.1 fl (7.4-10.4); MONOCYTE # 0.4 10^3/ul (0.3-0.9); MONOCYTES % 4.8 % (0.0-11.0); NEUTROPHIL # 7.8 10^3/ul (1.6-7.5); NEUTROPHILS % 85.2 % (39.0-77.0); PLATELET COUNT 246 10^3/UL (140-440); RED BLOOD COUNT 5.18 10^6/ul (4.70-6.10); RED CELL DISTRIBUTION WIDTH 12.6 % (11.5-14.5); UNCORRECTED WBC 9.2 10^3/ul (4.8-10.8); WHITE BLOOD COUNT 9.2 10^3/ul (4.8-10.8)
[2016-03-21 06:45] LABS: CONDITION 1
[2016-03-21 06:56] LABS: POTASSIUM 4.1 mmol/L (3.5-5.1)
[2016-03-21 06:58] LABS: CREATININE 0.62 mg/dl (0.61-1.24)
[2016-03-21 06:59] LABS: PHOSPHORUS 3.3 mg/dl (2.5-4.9)
[2016-03-21 07:46] VITALS: BP 156/96; RESP 22
[2016-03-21] MEDS: FLUOXETINE 20 MG CAP PO SCH (09:00)
[2016-03-21] MEDS: FAMOTIDINE 20 MG TAB PO SCH (09:00)
[2016-03-21] MEDS: SENNA TAB PO SCH (09:00)
[2016-03-21] MEDS: DOCUSATE SODIUM 100 MG CAP PO SCH (09:00)
--- NOTE | 2016-03-21 14:24 | PN ---
Date/Time of Note Date/Time of Note DATE: 03/21/16 TIME: 14:22 Assessment/Plan VTE Prophylaxis VTE Prophylaxis Intervention: contraindicated (Pending surgery) Lines/Catheters IV Catheter Type (from Nrsg): Peripheral IV Urinary Cath still in place: No Assessment/Plan Chief Complaint/Hosp Course Hospitalist coverage: S: 03/21 events noted O: Vss PE: No pallor Reg; no m/r/g CTAB Bs+, nt, nd, no r/r/g No edema Neuro: Min bilat symmetrical upper ext weakness A/P: 1. Cervical cord radiculopathy. Stable. For discectomy fusion. -Low periop risk, may proceed from medical standpoint. 2. C spine djd. 3. Ho anxiety. 4. Pre -diabetes. 5. Htn/metabolic syndrome. Problems: Exam/Review of Systems Vital Signs Vitals Vital Signs Date Time Temp Pulse Resp B/P Pulse Ox O2 Delivery O2 Flow Rate FiO2 03/21/16 07:46 98.6 77 22 156/96 98 03/20/16 20:00 Room Air Intake and Output 03/20/16 03/20/16 03/21/16 15:00 23:00 07:00 Intake Total 1920 ml 600 ml Balance 1920 ml 600 ml Results Result Diagram: 03/21/1652203/21/16 05 Results 24 hrs Laboratory Tests Test 03/21/16 05:23 Anion Gap 14 Basophils # 0.0 Basophils % 0.1 Blood Urea Nitrogen 22 H Calcium Level 9.0 Carbon Dioxide Level 29 Chloride Level 98 Creatinine 0.62 Eosinophils # 0.0 Eosinophils % 0.0 Glucose Level 138 Hematocrit 47.7 Hemoglobin 16.0 Lymphocytes # 0.9 Lymphocytes % 9.9 L Magnesium Level 2.0 Mean Corpuscular Hemoglobin 30.9 Mean Corpuscular Hemoglobin Concent 33.6 Mean Corpuscular Volume 92.0 Mean Platelet Volume 9.1 Monocytes # 0.4 Monocytes % 4.8 Neutrophils # 7.8 H Neutrophils % 85.2 H Nucleated Red Blood Cells # 0.0 Nucleated Red Blood Cells % 0.0 Phosphorus Level 3.3 Platelet Count 246 Potassium Level 4.1 Red Blood Count 5.18 Red Cell Distribution Width 12.6 Sodium Level 137 White Blood Count 9.2 Medications Medications Current Medications Morphine Sulfate (morphine) 4 mg Q4H PRN IV SEVERE PAIN Last administered on 11:55; Admin Dose 4 MG; Start 03/17/16 at 03:00 Acetaminophen (Tylenol Tab) 650 mg Q6H PRN PO PAIN AND OR ELEVATED TEMP; Start 03/17/16 at 03:00 Fluoxetine HCl (Prozac) 20 mg DAILY PO Last administered on 03/20/16 08:48; Admin Dose 20 MG; Start 03/17/16 at 09:00 Dexamethasone (Decadron) 4 mg Q6 IV Last administered on 03/21/16 11:55; Admin Dose 4 MG; Start 03/17/16 at 06:30 Docusate Sodium (Colace) 100 mg BID PO Last administered on 03/19/16 08:36; Admin Dose 100 MG; Start 03/19/16 at 09:00 Senna (Senokot) 1 tab BID PO Last administered on 03/19/16 08:36; Admin Dose 1 TAB; Start 03/19/16 at 09:00 Acetaminophen/ Hydrocodone Bitart ([place] (10/325)) 1 tab Q4H PRN PO PAIN Last administered on 03/20/16 22:08; Admin Dose 1 TAB; Start 03/20/16 at 11:00 Famotidine 20 mg 20 mg DAILY PO ; Start 03/21/16 at 09:00 Potassium Chloride/Dextrose/ Sod Cl (D5-NS + KCl 20 Meq) 1,000 ml @ 100 mls/hr Q10H IV Last administered on 03/21/16 10:00; Admin Dose 100 MLS/HR; Start at 00:00 CINDY KEY MD Mar 21, 2016 14:24
[2016-03-21 20:52] VITALS: BP 141/94; RESP 20
[2016-03-22] MEDS: HYDROCODONE/APAP (10/325) TAB PO PRN ×3 (00:02→21:00)
[2016-03-22] MEDS: D5-NS + KCL 20 MEQ 1,000 ML IV SCH ×4 (00:02→16:00)
[2016-03-22] MEDS ORDERED: METHYLDOPA 250 MG TAB PO SCH (02:00)
[2016-03-22] MEDS ORDERED: HYDROmorphONE 1 MG/ML SYG IV PRN (02:00)
[2016-03-22] MEDS: morphine 4 MG/ML VIAL IV PRN ×4 (03:37→18:51)
[2016-03-22 05:56] LABS: HEMOGLOBIN 16.8 g/dl (14.0-18.0); LYMPHOCYTES % 10.6 % (15.0-51.0); MEAN CORPUSCULAR HEMOGLOBIN 31.4 pg (29.0-33.0); MEAN CORPUSCULAR HGB CONC 34.2 g/dl (32.0-37.0); MEAN CORPUSCULAR VOLUME 91.7 fl (82.0-101.0); MEAN PLATELET VOLUME 8.9 fl (7.4-10.4); MONOCYTE # 0.5 10^3/ul (0.3-0.9); MONOCYTES % 5.5 % (0.0-11.0); NEUTROPHIL # 7.6 10^3/ul (1.6-7.5); NEUTROPHILS % 83.9 % (39.0-77.0); PLATELET COUNT 249 10^3/UL (140-440); POTASSIUM 4.1 mmol/L (3.5-5.1); RED BLOOD COUNT 5.35 10^6/ul (4.70-6.10); RED CELL DISTRIBUTION WIDTH 12.7 % (11.5-14.5); UNCORRECTED WBC 9.1 10^3/ul (4.8-10.8); WHITE BLOOD COUNT 9.1 10^3/ul (4.8-10.8)
[2016-03-22 05:59] LABS: CREATININE 0.69 mg/dl (0.61-1.24); PHOSPHORUS 3.7 mg/dl (2.5-4.9)
[2016-03-22 06:00] LABS: MAGNESIUM 2.1 mg/dl (1.7-2.5)
[2016-03-22 06:18] LABS: CONDITION 1
[2016-03-22] MEDS: DEXAMETHASONE 4 MG/ML 1 ML INJ IV SCH ×3 (06:23→18:50)
[2016-03-22 07:38] VITALS: BP 163/105; RESP 18
[2016-03-22] MEDS: DOCUSATE SODIUM 100 MG CAP PO SCH (08:00)
[2016-03-22] MEDS: FAMOTIDINE 20 MG TAB PO SCH ×2 (08:01→11:56)
[2016-03-22] MEDS: FLUOXETINE 20 MG CAP PO SCH ×2 (08:01→11:56)
--- NOTE | 2016-03-22 10:54 | PN ---
Date/Time of Note Date/Time of Note DATE: 03/22/16 TIME: 10:53 Assessment/Plan VTE Prophylaxis VTE Prophylaxis Intervention: contraindicated (Bleeding risk) Lines/Catheters IV Catheter Type (from Nrsg): Peripheral IV Urinary Cath still in place: No Assessment/Plan Chief Complaint/Hosp Course Hospitalist coverage: S: 03/21 events noted 03/22 no events. Pain controlled. No dyspnea fever. Surgical time unknown. O: Vss PE: No pallor Reg; no m/r/g ctab Bs+, nt, nd, no r/r/g No edema Neuro: Min bilat symmetrical upper ext weakness A/P: 1. Cervical cord radiculopathy. Stable. For discectomy fusion. Inpatient vs outpatient elective surgery. -Low periop risk, may proceed from medical standpoint. 2. C spine djd. 3. Ho anxiety. 4. Pre -diabetes. 5. Htn/metabolic syndrome. Problems: Exam/Review of Systems Vital Signs Vitals Vital Signs Date Time Temp Pulse Resp B/P Pulse Ox O2 Delivery O2 Flow Rate FiO2 03/22/16 07:38 98.0 54 18 163/105 99 03/20/16 20:00 Room Air Intake and Output 03/21/16 03/21/16 03/22/16 15:00 23:00 07:00 Intake Total 1000 ml Output Total 400 ml Balance -400 ml 1000 ml Results Result Diagram: 03/22/16 0505 03/22/16 0505 Results 24 hrs Laboratory Tests Test 03/22/16 05:05 Anion Gap 11 Basophils # 0.0 Basophils % 0.0 Blood Urea Nitrogen 22 H Calcium Level 9.0 Carbon Dioxide Level 32 H Chloride Level 97 Creatinine 0.69 Eosinophils # 0.0 Eosinophils % 0.0 Glucose Level 149 Hematocrit 49.0 Hemoglobin 16.8 Lymphocytes # 1.0 Lymphocytes % 10.6 L Magnesium Level 2.1 Mean Corpuscular Hemoglobin 31.4 Mean Corpuscular Hemoglobin Concent 34.2 Mean Corpuscular Volume 91.7 Mean Platelet Volume 8.9 Monocytes # 0.5 Monocytes % 5.5 Neutrophils # 7.6 H Neutrophils % 83.9 H Nucleated Red Blood Cells # 0.0 Nucleated Red Blood Cells % 0.0 Phosphorus Level 3.7 Platelet Count 249 Potassium Level 4.1 Red Blood Count 5.35 Red Cell Distribution Width 12.7 Sodium Level 136 White Blood Count 9.1 Medications Medications Current Medications Morphine Sulfate (morphine) 4 mg Q4H PRN IV SEVERE PAIN Last administered on 09:27; Admin Dose 4 MG; Start 03/17/16 at 03:00 Acetaminophen (Tylenol Tab) 650 mg Q6H PRN PO PAIN AND OR ELEVATED TEMP; Start 03/17/16 at 03:00 Fluoxetine HCl (Prozac) 20 mg DAILY PO Last administered on 03/20/16 08:48; Admin Dose 20 MG; Start 03/17/16 at 09:00 Dexamethasone (Decadron) 4 mg Q6 IV Last administered on 03/22/16 06:23; Admin Dose 4 MG; Start 03/17/16 at 06:30 Acetaminophen/ Hydrocodone Bitart ([place] (10/325)) 1 tab Q4H PRN PO PAIN Last administered on 03/22/16 00:02; Admin Dose 1 TAB; Start 03/20/16 at 11:00 Famotidine 20 mg 20 mg DAILY PO ; Start 03/21/16 at 09:00 Potassium Chloride/Dextrose/ Sod Cl (D5-NS + KCl 20 Meq) 1,000 ml @ 100 mls/hr Q10H IV Last administered on 03/22/16 00:02; Admin Dose 100 MLS/HR; Start at 00:00 Docusate Sodium (Colace) 100 mg MONWEDFRI PO ; Start 03/22/16 at 09:00 Lactobacillus Acidoph/Bulgaricus (Floranex) 1 tab BID PO ; Start 03/23/16 at 09: 00 CINDY KEY MD Mar 22, 2016 10:54
[2016-03-22 19:52] VITALS: BP 134/86; PULSE 57; RESP 18
[2016-03-23] MEDS: morphine 4 MG/ML VIAL IV PRN ×5 (00:02→19:24)
[2016-03-23] MEDS: DEXAMETHASONE 4 MG/ML 1 ML INJ IV SCH ×4 (00:05→18:00)
[2016-03-23] MEDS: D5-NS + KCL 20 MEQ 1,000 ML IV SCH ×3 (02:00→12:00)
[2016-03-23 06:21] LABS: BASOPHILS % 0.2 % (0.0-2.0); HEMOGLOBIN 16.4 g/dl (14.0-18.0); LYMPHOCYTES # 1.2 10^3/ul (0.8-2.9); LYMPHOCYTES % 12.9 % (15.0-51.0); MEAN CORPUSCULAR HEMOGLOBIN 31.2 pg (29.0-33.0); MEAN CORPUSCULAR HGB CONC 34.2 g/dl (32.0-37.0); MEAN CORPUSCULAR VOLUME 91.3 fl (82.0-101.0); MEAN PLATELET VOLUME 8.7 fl (7.4-10.4); MONOCYTE # 0.7 10^3/ul (0.3-0.9); MONOCYTES % 7.3 % (0.0-11.0); NEUTROPHIL # 7.3 10^3/ul (1.6-7.5); NEUTROPHILS % 79.6 % (39.0-77.0); PLATELET COUNT 232 10^3/UL (140-440); RED BLOOD COUNT 5.26 10^6/ul (4.70-6.10); RED CELL DISTRIBUTION WIDTH 12.7 % (11.5-14.5); UNCORRECTED WBC 9.1 10^3/ul (4.8-10.8); WHITE BLOOD COUNT 9.1 10^3/ul (4.8-10.8)
[2016-03-23 06:22] LABS: CONDITION 1
[2016-03-23 06:27] LABS: POTASSIUM 4.3 mmol/L (3.5-5.1)
[2016-03-23 06:29] LABS: CREATININE 0.66 mg/dl (0.61-1.24)
[2016-03-23 06:54] LABS: THYROID STIMULATING HORMONE 1.15 MIU/L (0.465-4.680)
[2016-03-23 07:43] VITALS: BP 183/107; RESP 20
[2016-03-23] MEDS: FAMOTIDINE 20 MG TAB PO SCH (08:24)
[2016-03-23] MEDS: LACTOBACILLUS CHEW TAB PO SCH ×2 (08:24→21:16)
[2016-03-23] MEDS: FLUOXETINE 20 MG CAP PO SCH (08:24)
[2016-03-23 09:54] VITALS: BP 152/96
[2016-03-23] MEDS: HYDROCODONE/APAP (10/325) TAB PO PRN ×2 (16:57→21:17)
[2016-03-23 21:41] VITALS: BP 148/103; RESP 20
[2016-03-24] VITALS (11 sets, daily range): BP systolic 131–151; BP diastolic 75–96; PULSE 62–68; RESP 12–20
[2016-03-24] MEDS: D5-NS + KCL 20 MEQ 1,000 ML IV SCH ×2 (00:21→22:25)
[2016-03-24] MEDS: DEXAMETHASONE 4 MG/ML 1 ML INJ IV SCH ×4 (00:25→19:00)
[2016-03-24] MEDS: morphine 4 MG/ML VIAL IV PRN ×4 (00:26→20:09)
[2016-03-24 06:42] LABS: HEMATOCRIT 50.7 % (42.0-52.0); HEMOGLOBIN 17.2 g/dl (14.0-18.0); LYMPHOCYTES # 0.9 10^3/ul (0.8-2.9); LYMPHOCYTES % 8.2 % (15.0-51.0); MEAN CORPUSCULAR HEMOGLOBIN 31.3 pg (29.0-33.0); MEAN CORPUSCULAR VOLUME 92.3 fl (82.0-101.0); MEAN PLATELET VOLUME 8.9 fl (7.4-10.4); MONOCYTE # 0.4 10^3/ul (0.3-0.9); NEUTROPHIL # 9.6 10^3/ul (1.6-7.5); NEUTROPHILS % 87.8 % (39.0-77.0); PLATELET COUNT 242 10^3/UL (140-440); RED BLOOD COUNT 5.49 10^6/ul (4.70-6.10); RED CELL DISTRIBUTION WIDTH 12.3 % (11.5-14.5)
[2016-03-24 06:48] LABS: POTASSIUM 4.4 mmol/L (3.5-5.1)
[2016-03-24 06:49] LABS: PROTIME 13.2 Sec (12.2-14.2)
[2016-03-24 06:50] LABS: CREATININE 0.68 mg/dl (0.61-1.24)
[2016-03-24 06:51] LABS: PHOSPHORUS 3.4 mg/dl (2.5-4.9)
[2016-03-24 06:52] LABS: MAGNESIUM 2.1 mg/dl (1.7-2.5)
[2016-03-24 06:54] LABS: CONDITION 1
[2016-03-24] MEDS: FAMOTIDINE 20 MG TAB PO SCH (09:00)
[2016-03-24] MEDS: FLUOXETINE 20 MG CAP PO SCH (09:00)
[2016-03-24] MEDS: LACTOBACILLUS CHEW TAB PO SCH ×2 (09:00→20:09)
[2016-03-24] MEDS: DOCUSATE SODIUM 100 MG CAP PO SCH (09:00)
--- NOTE | 2016-03-24 12:24 | HPN ---
Date/Time of Note Date/Time of Note DATE: 03/24/16 TIME: 12:23 Interval H&P Admission Note H&P reviewed, no significant changes. 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 Stgill complains of difficulty with ambulation. MARCIA YOUNG MD Mar 24, 2016 12:23
[2016-03-24] MEDS ORDERED: MIDAZOLAM 1 MG/ML 2 ML INJ ONE (12:28)
[2016-03-24] MEDS ORDERED: LIDOCAINE 2% (SDV) 5 ML INJ ONE (12:28)
--- NOTE | 2016-03-24 12:35 | QN ---
Documentation Comment Pre-op note I had a long discussion with the patient and reiterated the goals of surgery: he understands the goal is to prevent further trauma/ re-injury to the spinal cord at C3-4. He understands that a successful surgery may not result in improvement in his upper extremity strength or in his ambulation, as these deficits are secondary to cord injury already sustained. He was advised these symptoms may improve over time (six months to a year). We also discussed the degenerative disease seen at C6-7 and C5-6. 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 He understands that some of his prior symptoms such as right shoulder pain arm pain and limited ROM (including those for which he sought accupuncture) are more likely related to these foraminal stenoses and therefore will not be addressed by the current surgery. These may respond to conservative management. Surgical decompression and fusion today will be limited to C3-4 where cord signal change is seen. We also discussed the risks of surgery, including possible trauma to the esophagus and/ or recurrent laryngeal nerve, pseudoarthosis, CSF leak, wound infection, and possible worsening neurologic deficit. He understands that the cumulative risks of these complications are still less than the risk of further/ recurrent injury to the spinal cord if left untreated. All questions were answered, and no guarantees were made. The patient expressed his understanding of all the foregoing and wishes to proceed. MARCIA YOUNG MD Mar 24, 2016 12:35
[2016-03-24] MEDS ORDERED: PROPOFOL 20 ML ONE ×2 (12:58→13:59)
[2016-03-24] MEDS ORDERED: FENTAnyl 50 MCG/ML VIAL ONE (12:59)
[2016-03-24] MEDS ORDERED: EPHEDrine SULFATE 50 MG/5 ML SYG ONE (13:11)
[2016-03-24] MEDS ORDERED: LIDOCAINE 0.5%/EPI (MDV) 50 ML INJ ONE (13:42)
[2016-03-24] MEDS ORDERED: GELATIN SIZE 100 SPONGE ONE (13:42)
[2016-03-24] MEDS ORDERED: POLYMYXIN/BACITRACIN 1L IRRIG ONE (13:42)
[2016-03-24] MEDS ORDERED: THROMBIN 5000 UNIT VIAL ONE (13:42)
[2016-03-24] MEDS ORDERED: DEXAMETHASONE 4 MG/ML 1 ML INJ ONE (14:06)
[2016-03-24] MEDS ORDERED: ONDANSETRON 4 MG INJ ONE (14:06)
[2016-03-24] MEDS ORDERED: METOCLOPRAMIDE 10 MG INJ ONE (14:06)
[2016-03-24] MEDS ORDERED: ROCURONIUM 50 MG INJ ONE ×2 (14:24→14:25)
[2016-03-24] MEDS ORDERED: GLYCOPYRROLATE 1 MG INJ ONE (14:26)
[2016-03-24] MEDS ORDERED: NEOSTIGMINE 3 MG/3 ML SYRINGE ONE (14:26)
[2016-03-24] MEDS ORDERED: HYDROmorphONE 2 MG/ML SYG ONE (14:27)
--- NOTE | 2016-03-24 14:42 | PN ---
Date/Time of Note Date/Time of Note DATE: 03/24/16 TIME: 14:40 Assessment/Plan VTE Prophylaxis VTE Prophylaxis Intervention: contraindicated (bleeding risk) Lines/Catheters IV Catheter Type (from Nrsg): Peripheral IV Urinary Cath still in place: No Assessment/Plan Chief Complaint/Hosp Course Hospitalist coverage: S: 03/21 events noted 03/22 no events. Pain controlled. No dyspnea fever. Surgical time unknown. 03/23- stable, no further pain. no dyspnea, fever. 03/24- in surgery O: Vss PE: -deferred; in surgery. A/P: 1. Cervical cord radiculopathy. Stable, for discectomy/ fusion. -Low periop risk, may proceed from medical standpoint. 2. C spine djd. DME/brace soon 3. Ho anxiety. 4. Pre -diabetes. 5. Htn/metabolic syndrome. Problems: Exam/Review of Systems Vital Signs Vitals Vital Signs Date Time Temp Pulse Resp B/P Pulse Ox O2 Delivery O2 Flow Rate FiO2 03/24/16 07:18 98.4 60 18 145/94 98 03/22/16 19:52 Room Air Intake and Output 03/23/16 03/23/16 03/24/16 15:00 23:00 07:00 Intake Total 1000 ml 180 ml Balance 1000 ml 180 ml Results Result Diagram: 03/24/16 0511 03/24/16 0511 Results 24 hrs Laboratory Tests Test 03/24/16 05:11 Activated Partial Thromboplast Time 24.1 L Anion Gap 14 Basophils # 0.0 Basophils % 0.0 Blood Urea Nitrogen 24 H Calcium Level 9.0 Carbon Dioxide Level 28 Chloride Level 96 L Creatinine 0.68 Eosinophils # 0.0 Eosinophils % 0.0 Glucose Level 131 Hematocrit 50.7 Hemoglobin 17.2 INR International Normalized Ratio 1.00 Lymphocytes # 0.9 Lymphocytes % 8.2 L Magnesium Level 2.1 Mean Corpuscular Hemoglobin 31.3 Mean Corpuscular Hemoglobin Concent 34.0 Mean Corpuscular Volume 92.3 Mean Platelet Volume 8.9 Monocytes # 0.4 Monocytes % 4.0 Neutrophils # 9.6 H Neutrophils % 87.8 H Nucleated Red Blood Cells # 0.0 Nucleated Red Blood Cells % 0.0 Phosphorus Level 3.4 Platelet Count 242 Potassium Level 4.4 Prothrombin Time 13.2 Prothrombin Time Ratio 1.0 Red Blood Count 5.49 Red Cell Distribution Width 12.3 Sodium Level 134 L White Blood Count 11.0 #H Medications Medications Current Medications Morphine Sulfate (morphine) 4 mg Q4H PRN IV SEVERE PAIN Last administered on 09:59; Admin Dose 4 MG; Start 03/17/16 at 03:00 Acetaminophen (Tylenol Tab) 650 mg Q6H PRN PO PAIN AND OR ELEVATED TEMP; Start 03/17/16 at 03:00 Fluoxetine HCl (Prozac) 20 mg DAILY PO Last administered on 03/23/16 08:24; Admin Dose 20 MG; Start 03/17/16 at 09:00 Dexamethasone (Decadron) 4 mg Q6 IV Last administered on 03/24/16 05:35; Admin Dose 4 MG; Start 03/17/16 at 06:30 Acetaminophen/ Hydrocodone Bitart ([place] (10/325)) 1 tab Q4H PRN PO PAIN Last administered on 03/23/16 21:17; Admin Dose 1 TAB; Start 03/20/16 at 11:00 Famotidine 20 mg 20 mg DAILY PO Last administered on 03/23/16 08:24; Admin Dose 20 MG; Start 03/21/16 at 09:00 Potassium Chloride/Dextrose/ Sod Cl (D5-NS + KCl 20 Meq) 1,000 ml @ 40 mls/hr Q24H IV Last administered on 03/24/16 00:21; Admin Dose 40 MLS/HR; Start 03/21 at 00:00 Docusate Sodium (Colace) 100 mg MONWEDFRI PO ; Start 03/22/16 at 09:00 Lactobacillus Acidoph/Bulgaricus (Floranex) 1 tab BID PO Last administered on 21:16; Admin Dose 1 TAB; Start 03/23/16 at 09:00 CINDY KEY MD Mar 24, 2016 14:41
[2016-03-24] MEDS ORDERED: PROCHLORPERAZINE 10 MG INJ IV PRN (16:30)
[2016-03-24] MEDS ORDERED: ONDANSETRON 4 MG INJ IV PRN (16:30)
[2016-03-24] MEDS ORDERED: MEPERIDINE 25 MG INJ IV PRN (16:30)
[2016-03-24] MEDS ORDERED: hydrALAzine 20 MG INJ IV PRN (16:30)
[2016-03-24] MEDS ORDERED: HYDROmorphONE (0.2 MG/ML) 10ML SYG IV PRN ×2 (16:30)
[2016-03-24] MEDS ORDERED: FENTAnyl 50 MCG/ML VIAL IV PRN ×3 (16:30)
[2016-03-24] MEDS ORDERED: DIPHENHYDRAMINE 50 MG INJ IV PRN (16:30)
[2016-03-24] MEDS ORDERED: LABETALOL HCL 20MG INJ IV PRN (16:30)
[2016-03-24] MEDS: HYDROmorphONE (0.2 MG/ML) 10ML SYG IV PRN ×3 (17:13→17:32)
--- NOTE | 2016-03-24 17:27 | RADRPT ---
PROCEDURE: Intraoperative XR. CLINICAL INDICATION: Intraoperative radiograph during cervical spine surgery.. TECHNIQUE: 5 spot intraoperative lateral cervical x-ray image was provided. The images were revie wed on a high-resolution PACS workstation. COMPARISON: MRI cervical spine 03/16/2016 FINDINGS: Spot intraoperative lateral cervical view were provided during cervical spine surgery. The images d emonstrate initial metallic probe at the level of C3-4 and C4-5. There is subsequent placement of p aired anterior vertebral body screws in the C3 and C4 vertebral bodies with and disc spacer. IMPRESSION: 1. Spot intraoperative lateral cervical view during anterior cervical discectomy and fusion at C3-4 were provided. 2. Please see operative report of the same day for further information. RPTAT: HGAS .Lior Whatley MD, Date Time Electronically viewed and signed by .Lior Whatley MD, on 03/24/2016 17:27 .S/
--- NOTE | 2016-03-24 18:43 | OPR ---
DATE OF OPERATION: 03/24/2016 SURGEON: Rodrigo Liriano MD MEDICAL ENGINEER: None. ANESTHESIA: General endotracheal anesthesia. OPERATION PERFORMED: 1. Anterior cervical diskectomy, C3-C4. 2. Anterior cervical fusion, cervical 3, cervical 4. 3. Anterior cervical plate fixation, cervical 3, cervical 4. 4. Operative microscope, motor-evoked potentials, and somatosensory motor-evoked potentials x3 hour s. INDICATIONS: The patient is a 56-year-old male with central cord syndrome presentation with bilater al hand weakness and cord signal change at C3-C4 secondary to a large disk herniation at this level. Risks, benefits, and alternatives to cervical decompression and fusion at 3-4 were explained to e patient in detail. Informed consent was obtained for the operation. OPERATION: The patient was positioned supine on the operating table after induction of general anes thesia. The head was placed on a horseshoe headrest, gently extended, and held in mild capital exte nsion with 4 inch cloth tape. A crosstable x-ray was used to determine the accuracy of radiographic exposure and maintain alignment. Baseline SSEP and motor-evoked potentials were obtained. The pat ient was then prepped and draped in usual sterile fashion. A 15 blade was used to incise the skin a fter performing a complete timeout per protocol in one of the cervical neck creases overlying the 4- 5 space. The platysma was dissected with Bovie electrocautery. The dissection was carried down ant erior to the sternocleidomastoid muscle until the ventral prevertebral fascia was identified. This was exposed with a peanut using a handheld retractor to retract the esophagus and midline structures . The carotid artery was identified, and dissection was carried out medial to the same. The longus colli was mobilized bilaterally with Bovie electrocautery. A spinal needle was used to confirm the C3-C4 disk space level. The surface of the spine was further prepared with furthermore mobilizatio n of the longus colli to facilitate placement of the radiolucent retractor system, and once the retr actor system was completely in place prior to placing and immediately after placing a distraction pi n in the body of C3, crosstable radiographs were obtained to confirm the level again. A second dist raction pin was placed in the vertebral body at C4. The disk space was incised with a Bovie, and th en distraction was applied across the disk space with the distractor. Using combination of curettes , the disk material was removed from the disk space. This was decompressed from uncovertebral joint to uncovertebral joint. The drill was then used to drill out the bone spurs of the uncovertebral j oints bilaterally. A shelf was left in the superior endplate of the vertebral body of C4 to prevent retropulsion of the bone graft. The operative microscope was brought in. Under the operative prec lude, the remaining disk material and posterior longitudinal ligament were resected exposing the dur a, and the decompression was carried out laterally on the patient's right side until bleeding was en countered from the epidural venous plexus. This was readily controlled with a small amount of FloSe al. The disk space was palpated with a blunt nerve hook, and there was not felt to be any residual disk material there. Attention was then turned toward the fusion portion of the procedure. The dis k space was sized after the diskectomy, and an 8 mm 0 degree bone plug was placed using a tamp. The distraction pins were then removed. A 23 mm anterior cervical plate was placed at the 3-4 disk spa ce and held in position temporarily with temporary stay pins, and then, using an all fixed drill olamide de, the cortex was perforated, and four 13 mm screws, which were self-tapping screws, were placed us ing a fixed drill guide. These were variable self-tapping screws. The distraction pins were, of co urse, removed in order to accommodate the drill and screws. Prior to tightening the plate, another crosstable radiograph was obtained which demonstrated excellent alignment of the plate and the screw s and fusion construct, and then the screws were finally tightened. The wound was irrigated with co pious amounts of antibiotic irrigation. Meticulous hemostasis was obtained with bipolar electrocaut kymberly. The microscope was then removed, and the platysma was reapproximated with interrupted 3-0 Vicr yl suture, and a running 4-0 Monocryl was used to close the subcuticular layer. Dermabond was used on skin. There were no complications. After the decompression, the motor-evoked potentials and sen char motor-evoked potentials were stable from prepositioning. There were no changes in any of the e lectrodiagnostic recordings. There were no complications. All needle and sponge counts were report ed correct x2. Dictated By: RODRIGO HERNANDEZ/GURU Conf#: [id number] DID#: [id number]
[2016-03-24] MEDS: HYDROCODONE/APAP (10/325) TAB PO PRN (23:03)
[2016-03-25] MEDS: DEXAMETHASONE 4 MG/ML 1 ML INJ IV SCH ×3 (00:20→11:50)
[2016-03-25] MEDS: morphine 4 MG/ML VIAL IV PRN ×5 (00:25→21:23)
[2016-03-25] MEDS: HYDROCODONE/APAP (10/325) TAB PO PRN ×3 (04:07→19:31)
[2016-03-25 07:57] VITALS: BP 142/87; RESP 18
[2016-03-25] MEDS: FAMOTIDINE 20 MG TAB PO SCH (08:46)
[2016-03-25] MEDS: LACTOBACILLUS CHEW TAB PO SCH ×2 (08:46→21:23)
[2016-03-25] MEDS: FLUOXETINE 20 MG CAP PO SCH (08:46)
--- NOTE | 2016-03-25 12:23 | PN ---
Date/Time of Note Date/Time of Note DATE: 03/25/16 TIME: 12:19 Assessment/Plan VTE Prophylaxis VTE Prophylaxis Intervention: contraindicated VTE Contraindication Reason: bleeding Lines/Catheters IV Catheter Type (from Nrsg): Peripheral IV Urinary Cath still in place: Yes Reason Cath still needed: urinary retention Assessment/Plan Chief Complaint/Hosp Course Hospitalist coverage: S: 03/21 events noted 03/22 no events. Pain controlled. No dyspnea fever. Surgical time unknown. 03/23- stable, no further pain. no dyspnea, fever. 03/24- in surgery 03/25: Feels well. No dyspnea fever or pain. Paresthesias/numbness remain. No bladder discomfort or retention however over the last few hours was noted to have hematuria. Not on Lovenox. O: Vss PE: No pallor Regular Clear Bs positive, nontender nondistended, no R/R/G No edema A/P: 1. Cervical cord radiculopathy. Stable, sp discectomy/ fusion. Obtain DME, treat pain. Taper Decadron if ok w neurosurgery. 2. C spine djd. DME/brace soon 3. Ho anxiety. 4. Pre -diabetes. 5. Htn/metabolic syndrome. Problems: Exam/Review of Systems Vital Signs Vitals Vital Signs Date Time Temp Pulse Resp B/P Pulse Ox O2 Delivery O2 Flow Rate FiO2 03/25/16 07:57 98.7 54 18 142/87 98 03/24/16 17:33 Room Air 03/24/16 17:04 10.0 Intake and Output 03/24/16 03/24/16 03/25/16 15:00 23:00 07:00 Intake Total 260 ml 1300 ml 1200 ml Output Total 1210 ml 900 ml Balance 260 ml 90 ml 300 ml Results Result Diagram: 03/24/16 0511 03/24/16 0511 Medications Medications Current Medications Morphine Sulfate (morphine) 4 mg Q4H PRN IV SEVERE PAIN Last administered on 06:32; Admin Dose 4 MG; Start 03/17/16 at 03:00 Acetaminophen (Tylenol Tab) 650 mg Q6H PRN PO PAIN AND OR ELEVATED TEMP; Start 03/17/16 at 03:00 Fluoxetine HCl (Prozac) 20 mg DAILY PO Last administered on 03/25/16 08:46; Admin Dose 20 MG; Start 03/17/16 at 09:00 Dexamethasone (Decadron) 4 mg Q6 IV Last administered on 03/25/16 11:50; Admin Dose 4 MG; Start 03/17/16 at 06:30 Acetaminophen/ Hydrocodone Bitart ([place] (10)) 1 tab Q4H PRN PO PAIN Last administered on 03/25/16 08:45; Admin Dose 1 TAB; Start 03/20/16 at 11:00 Famotidine 20 mg 20 mg DAILY PO Last administered on 03/25/16 08:46; Admin Dose 20 MG; Start 03/21/16 at 09:00 Potassium Chloride/Dextrose/ Sod Cl (D5-NS + KCl 20 Meq) 1,000 ml @ 40 mls/hr Q24H IV Last administered on 03/24/16 00:21; Admin Dose 40 MLS/HR; Start 03/21 at 00:00 Docusate Sodium (Colace) 100 mg MONWEDFRI PO ; Start 03/22/16 at 09:00 Lactobacillus Acidoph/Bulgaricus (Floranex) 1 tab BID PO Last administered on 08:46; Admin Dose 1 TAB; Start 03/23/16 at 09:00 CINDY KEY MD Mar 25, 2016 12:23
[2016-03-25] MEDS ORDERED: BISACODYL 10 MG SUPP PR PRN (14:00)
[2016-03-25] MEDS: MAGNESIUM HYDROXIDE 30ML CUP PO SCH ×2 (14:16→21:00)
[2016-03-25] MEDS: BISACODYL (EC) 5 MG TAB PO SCH (14:16)
[2016-03-25] MEDS ORDERED: DEXAMETHASONE 4 MG TAB PO SCH (18:00)
[2016-03-25 20:00] VITALS: BP 151/94; PULSE 68; RESP 18
[2016-03-25] MEDS: DEXAMETHASONE 4 MG TAB PO SCH (21:23)
[2016-03-26] MEDS ORDERED: ZOLPIDEM 5 MG TAB PO PRN (00:30)
[2016-03-26] MEDS: morphine 4 MG/ML VIAL IV PRN ×3 (04:54→14:29)
[2016-03-26 06:12] LABS: ALBUMIN 3.4 g/dl (3.3-4.9); INR 1.04; PARTIAL THROMBOPLASTIN TIME 24.5 Sec (25.0-35.0); PROTIME 13.6 Sec (12.2-14.2); PT RATIO 1.1
[2016-03-26 06:13] LABS: POTASSIUM 3.9 mmol/L (3.5-5.1)
[2016-03-26 06:15] LABS: BILIRUBIN,INDIRECT 0.4 mg/dl (0-1.1); BILIRUBIN,TOTAL 0.4 mg/dl (0.2-1.3); CREATININE 0.65 mg/dl (0.61-1.24)
[2016-03-26 06:16] LABS: ALBUMIN/GLOBULIN RATIO 1.47; CALCIUM 8.6 mg/dl (8.4-10.2); TOTAL PROTEIN 5.7 g/dl (6.1-8.1)
[2016-03-26] MEDS: HYDROCODONE/APAP (10/325) TAB PO PRN ×2 (06:18→10:53)
[2016-03-26 06:43] LABS: HEMOGLOBIN 16.2 g/dl (14.0-18.0); LYMPHOCYTES # 0.9 10^3/ul (0.8-2.9); LYMPHOCYTES % 7.8 % (15.0-51.0); MEAN CORPUSCULAR HEMOGLOBIN 31.4 pg (29.0-33.0); MEAN CORPUSCULAR HGB CONC 34.4 g/dl (32.0-37.0); MEAN CORPUSCULAR VOLUME 91.2 fl (82.0-101.0); MONOCYTE # 0.7 10^3/ul (0.3-0.9); MONOCYTES % 6.2 % (0.0-11.0); NEUTROPHIL # 9.9 10^3/ul (1.6-7.5); PLATELET COUNT 202 10^3/UL (140-440); RED BLOOD COUNT 5.15 10^6/ul (4.70-6.10); RED CELL DISTRIBUTION WIDTH 12.4 % (11.5-14.5); UNCORRECTED WBC 11.5 10^3/ul (4.8-10.8); WHITE BLOOD COUNT 11.5 10^3/ul (4.8-10.8)
[2016-03-26 07:09] LABS: CONDITION 1
[2016-03-26] MEDS: MAGNESIUM HYDROXIDE 30ML CUP PO SCH (08:23)
[2016-03-26] MEDS: FLUOXETINE 20 MG CAP PO SCH (08:25)
[2016-03-26] MEDS: FAMOTIDINE 20 MG TAB PO SCH (08:25)
[2016-03-26] MEDS: DEXAMETHASONE 4 MG TAB PO SCH (08:25)
[2016-03-26] MEDS: BISACODYL (EC) 5 MG TAB PO SCH (08:25)
[2016-03-26] MEDS: LACTOBACILLUS CHEW TAB PO SCH (08:25)
[2016-03-26 08:30] VITALS: BP 135/96; PULSE 67; RESP 18
[2016-03-26] MEDS ORDERED: ENOXAPARIN 40 MG/0.4 ML SYG SC SCH (09:00)
--- NOTE | 2016-03-26 09:51 | PDOCDIS ---
Discharge Instructions DIAGNOSIS Discharge Diagnosis: cervical stenosis CONDITION Patient Condition: Good HOME CARE INSTRUCTIONS: Special Diet: REGULAR DIET ACTIVITY: Activity Restrictions: Slowly Increase Activity Do not Drive FOLLOW UP/APPOINTMENTS Appointments Dr Liriano 1wk PCP 1-2wCINDY Francis MD Mar 26, 2016 09:51
[2016-03-26] MEDS ORDERED: ACET325T33 PO (09:53)
[2016-03-26] MEDS ORDERED: DOCU-216 PO (09:53)
[2016-03-26] MEDS ORDERED: ACID1TAB14 PO (09:53)
[2016-03-26] MEDS ORDERED: DEC4 PO (09:53)
[2016-03-26] MEDS ORDERED: Hydrocodone/Apap (10/325) PO (09:53)
[2016-03-26] MEDS ORDERED: CHOL100062 PO (10:00)
--- NOTE | 2016-03-26 16:46 | DS ---
DATE OF ADMISSION: 03/16/2016 DATE OF DISCHARGE: 03/26/2016 PRIMARY CARE PHYSICIAN: Unknown. ENGLISH HORN PLAYER: Dr. Liriano. DIAGNOSES ON ADMISSION: 1. Cervical disk disease/myelopathy diagnosed on discharge. Cervical disk disease/myelopathy. 2. Chronic depression. 3. Chronic degenerative joint disease. 4. Anxiety. 5. Prediabetes. 6. Hypertension. 7. Possible metabolic syndrome. HOSPITAL COURSE: A 56-year-old gentleman admitted with upper extremity disease contributing to micki re cervical disk disease. Patient was seen by Neurosurgery who recommended his operation. Risks, b enefits, options were discussed. Patient agreed to cervical decompression and fusion. Please see o perative report for complete details. Essentially underwent anterior cervical diskectomy C3-4, fusi on of C3, C4, and anterior cervical plate fixation C3, 4. The explanation was cervical disk disease and stability. He was noted to have cord edema/T2 signal change seen at the C3-4, and foraminal st enosis at lower levels, which is unrelated to this presentation. At some point down the line, he ma y need that evaluated surgically as well. The patient agrees to the plan of care. Postoperative ho spital course was uncomplicated. Patient's pain is controlled. He is ambulating, stable, and fit f or discharge. Strength is symmetrical and 5/5 bilaterally. Sensation is symmetrical bilaterally. He will go home with followup. Postoperatively, his urine was noted to have gross hematuria, probab ly from added Pedersen. Pedersen catheter was removed. Patient is not retaining. His hematuria has reso lved. Aggressive bowel and bladder care regimen will assist our patient. Therefore, we will send h im home on Colace. LABORATORY DATA: CMP essentially unremarkable. A1c was 6.1. Vitamin D level a little low at 20. TSH of 1.1. White cell count 11; patient on Decadron. H and H of 16 and 47, platelets of 202. INR 1. Urine unremarkable. IMAGING: C-spine x-rays show intact cervical diskectomy and fusion C3-4. C-spine MRI read as multi level DJD, focal posterior disk osteophyte complex C3-4 with associated posterior disk protrusion ca using central canal stenosis and cord compression. Associated cord edema. Small posterior disk bul ge at C5-6 causing mild ventral cord ____ without edema. Associated mild central canal and left kedar ral foraminal cells. C6-7 with posterior disk bulge, with mild central canal stenosis and mild to m oderate right neural foraminal stenosis. There is ____ cervical lordosis seen with muscle spasm. C hest x-ray no acute process. Head and neck CTA read as unremarkable carotids, unremarkable brain. DISCHARGE MEDICATIONS: Continued medication: Prozac 20 daily. New Medications: 1. Tylenol as needed. 2. Colace 100 twice daily 10 days. 3. Lactobacillus 1 capsule twice daily. 4. Decadron 4 mg once daily tomorrow on Sunday, then 2 mg once daily on Sunday, and then to stop. 5. Vitamin D 1000 daily. Dictated By: CINDY KEY MD AC/NTS Conf#: [id number] DID#: [id number] CC: MARCIA LIRIANO MD;*EndCC*
[2016-03-27] MEDS ORDERED: CHOLECALCIFEROL 1,000 UNIT TAB PO SCH (09:00)
[2016-03-28 08:00] VITALS: BP 187/88; RESP 22
== END 2016-03-26 16:04 | disposition home or self-care (01) | DRG 471 ==
LOC: E/R 13:44 → MS2 22:58
PROVIDERS: ADMIT Internal Medicine; ATTEND Internal Medicine
PROC: 0RT30ZZ Resection of Cervical Vertebral Disc, Open Approach (ICD-10-PCS; 2016-03-24)
PROC: 0RG10K0 Fusion of Cervical Vertebral Joint with Nonautologous Tissue Substitute, Anterior Approach, Anterior Column, Open Approach (ICD-10-PCS; principal; 2016-03-24 12:30)
DX: M50.01 Cervical disc disorder with myelopathy, high cervical region (principal); G95.19 Other vascular myelopathies; E88.81 Metabolic syndrome and other insulin resistance; M50.122 Cervical disc disorder at C5-C6 level with radiculopathy; R20.8 Other disturbances of skin sensation; M54.30 Sciatica, unspecified side; I10 Essential (primary) hypertension; F32.9 Major depressive disorder, single episode, unspecified; F41.9 Anxiety disorder, unspecified; R73.03 Prediabetes; R31.0 Gross hematuria; M48.00 Spinal stenosis, site unspecified; M47.22 Other spondylosis with radiculopathy, cervical region; E66.9 Obesity, unspecified; Z68.30 Body mass index [BMI] 30.0-30.9, adult
CPT/HCPCS: 36415; 70496; 70498; 71010; 72040; 72141; 80048; 80053; 80061; 82306; 83036; 83690; 83735; 84100; 84443; 84484; 85025; 85610; 85730; 87086; 88304; 93005; 96374; 96375; 97162; J1100; J1170; J1650; J2250; J2270; J2405; J2710; J2765; J3010; J3480; J7030; Q9967

== ENCOUNTER → 2016-04-05 | Outpatient (CLI) | payer OTHER ==
[~2016-04-05] MED LIST: ACET325T33 PO; ACID1TAB14 PO; CHOL100062 PO; DEC4 PO; DOCU-216 PO; FLUO20CA38 PO; Hydrocodone/Apap (10/325) PO
--- NOTE | 2016-04-05 11:47 | RADRPT ---
PROCEDURE: XR bilateral knees. CLINICAL INDICATION: Knee pain TECHNIQUE: AP weightbearing, PA weightbearing, lateral weightbearing and sunrise views of each kne e are available for review. COMPARISON: None available FINDINGS: Right knee: There is mild to moderate osteoarthrosis involving the right medial tibial femoral compartment and p atellofemoral compartment .This is associated with joint space narrowing, subchondral sclerosis and osteophytosis. Left knee: There is moderate osteoarthrosis involving the left medial tibial femoral compartment and patellofe moral compartment. This is associated with joint space narrowing, subchondral sclerosis and osteophy tosis. There is otherwise normal mineralization, architecture and alignment. No fractures are identified. No osseous lesions are identified. The soft tissues are unremarkable. IMPRESSION: Mild to moderate osteoarthrosis involving the right medial tibial femoral compartment and patellofem oral compartment Mild to moderate osteoarthrosis involving the left medial tibial femoral compartment and patellofemo ral compartment. RPTAT: HGDB .Biju Mark MD, MD Date Time Electronically viewed and signed by .Biju Mark MD, on 04/05/2016 11:47 .B/
== END | disposition home or self-care (01) ==
LOC: MERGE 10:30 → HKI 10:30
PROVIDERS: ATTEND Orthopaedic Surgery
DX: M17.0 Bilateral primary osteoarthritis of knee (principal); M51.36 Other intervertebral disc degeneration, lumbar region; M54.16 Radiculopathy, lumbar region; M25.562 Pain in left knee; M25.561 Pain in right knee
CPT/HCPCS: 73564; Z7500; G0463

== ENCOUNTER 2016-04-21 06:47 | Emergency (ER) | payer OTHER ==
[~2016-04-21] VITALS: Wt 89.0 kg
[2016-04-21 08:14] LABS: ADD UMIC YES; URINE BILIRUBIN (Dip) NEGATIVE (NEGATIVE); URINE BLOOD (Dip) NEGATIVE (NEGATIVE); URINE COLOR LT. YELLOW (YELLOW); URINE GLUCOSE (Dip) NEGATIVE (NEGATIVE); URINE KETONES (Dip) NEGATIVE (NEGATIVE); URINE LEUKOCYTE ESTERASE (Dip) TRACE (NEGATIVE); URINE NITRITE (Dip) NEGATIVE (NEGATIVE); URINE TOTAL PROTEIN (Dip) NEGATIVE (NEGATIVE); URINE UROBILINOGEN (Dip) 0.2 E.U./dL (0.1-1.0)
--- NOTE | 2016-04-21 08:37 | RADRPT ---
PROCEDURE: XR Cervical Spine. CLINICAL INDICATION: Neck pain TECHNIQUE: Three views of the cervical spine were performed. COMPARISON: None. FINDINGS: C3-4 ACDF with anterior disk spacer, plate and screw fixation. The vertebral bodies are normal in mineralization, architecture and alignment. No fracture or osseou s lesion is identified. No subluxation is demonstrated. There is mild C5-6 and moderate C6-7 degen erative disk disease. This is associated with space narrowing, endplate sclerosis and spondylosis. The uncinate joints are unremarkable. The facet joints are unremarkable. The soft tissues are norm al. IMPRESSION: C3-4 ACDF Mild C5-6 and moderate C6-7 degenerative disk disease. RPTAT: HGDB .Biju Mark MD, Date Time Electronically viewed and signed by .Biju Mark MD, on 04/21/2016 08:36 .B/
[2016-04-21 08:51] LABS: BACTERIA,URINE RARE; MUCUS,URINE FEW; URINE RBCS 0-2 /HPF (0)
[2016-04-21] MEDS ORDERED: ACET325T33 PO (08:56)
[2016-04-21] MEDS ORDERED: FLUO10CA66 PO (08:56)
--- NOTE | 2016-04-21 10:21 | ERD ---
ER Documentation Chief Complaint Date/Time DATE: 04/21/16 TIME: 10:18 Chief Complaint DRY MOUTH FOR THE PAST FEW DAYS.UNABLE TO SLEEP SINCE TAKING TRAMADOL HPI This is a 56-year-old male presenting to the emergency department complaining of dry mouth and not being able to sleep for the past 3 days. Patient recently had a cervical spine surgery 1 month ago at this facility and was given tramadol which he started that yesterday. Patient states that he takes Prozac and he just stopped that recently 2 weeks ago. Patient also states that it is more difficult for him to urinate than usual however he is able to urinate. He denies any hematuria, painful urination or flank pain. He denies any fevers. ROS All systems reviewed and are negative except as per history of present illness. Medications Home Meds Active Scripts Fluoxetine Hcl* (Prozac*) 10 Mg Capsule, 10 MG PO DAILY, #20 CAP Prov:PAULINO STOVALL PA-C 04/21/16 Acetaminophen* (Tylenol*) 325 Mg Tablet, 2 TAB PO Q4 Y for PAIN AND OR ELEVATED TEMP, #30 TAB Prov:PAULINO STOVALL PA-C 04/21/16 Cholecalciferol* (Vitamin D3*) 1,000 Unit Tablet, 1000 UNIT PO DAILY for 30 Days , #30 TAB Prov:CINDY KEY MD 03/26/16 Lactobacillus Acidoph/Bulgaricus* (Floranex*) 1 Each Tablet, 1 TAB PO BID for 10 Days, #20 TAB Prov:CINDY KEY MD 03/26/16 [Hydrocodone/Apap ()] 1 TAB TAB No Conflict Check, 1 TAB PO Q4H Y for PAIN for 1 Day Prov:CINDY KEY MD 03/26/16 Docusate Sodium (Dok) 100 Mg Capsule, 100 MG PO BID for 10 Days, #20 CAP 2 Refills Prov:CINDY KEY MD 03/26/16 Dexamethasone* (Decadron*) 4 Mg Tab, 4 MG PO BID for 2 Days, TAB Prov:CINDY KEY MD 03/26/16 Acetaminophen* (Tylenol*) 325 Mg Tablet, 650 MG PO Q6H Y for PAIN AND OR ELEVATED TEMP for 1 Day, TAB Prov:CINDY KEY MD 03/26/16 Reported Medications Fluoxetine Hcl* (Prozac*) 20 Mg Capsule, 20 MG PO DAILY, CAP 03/16/16 Allergies Allergies: Coded Allergies: No Known Allergy (Unverified , 03/16/16) PMhx/Soc History of Surgery: No Anesthesia Reaction: No Hx Neurological Disorder: No Hx Respiratory Disorders: No Hx Cardiac Disorders: No Hx Psychiatric Problems: Yes (ANXIETY) Hx Miscellaneous Medical Probl: Yes (see notes) Hx Alcohol Use: No Hx Substance Use: No Hx Tobacco Use: No Physical Exam Vitals Vital Signs Date Time Temp Pulse Resp B/P Pulse Ox O2 Delivery O2 Flow Rate FiO2 04/21/16 06:49 98.5 95 20 160/85 98 Physical Exam GENERAL: well-developed/well-nourished, in no apparent distress, non-toxic appearing HENT: NC/AT, bilateral tympanic membrane is normal with good cone of light, nares patent, oropharynx clear without exudates EYES: Conjunctiva normal, PERRLA, EOMI, no nystagmus noted NECK: Supple, no lymphadenopathy Anterior scar from cervical surgery PULM: CTA bilaterally, no rales, rhonchi, or wheezing heard CV: Normal S1S2, RRR, good capillary refill GI: Soft, non-distended, normal bowel sounds, non-tender BACK: No midline tenderness, no masses, No CVAT EXT: No clubbing, cyanosis, or edema NEURO: Alert and orientated to person, place, and time. CN II-IIX intact. Gait and coordination were normal. Hand manager research and development strength were equal and within normal limits SKIN: Intact, normal turgor PSYCH: Normal mood and mentation, patient denied SI Results 24 hrs Laboratory Tests Test 04/21/16 08:01 Urine Bacteria RARE Urine Bilirubin NEGATIVE Urine Clarity CLEAR Urine Color LT. YELLOW Urine Epithelial Cells RARE Urine Glucose NEGATIVE% Urine Hemoglobin NEGATIVE Urine Ketones NEGATIVE Urine Leukocyte Esterase TRACE Urine Microscopic RBC 0-2/HPF Urine Microscopic WBC 0-2/HPF Urine Mucus FEW Urine Nitrite NEGATIVE Urine Specific [place] 1.015 Urine Total Protein NEGATIVE Urine Urobilinogen 0.2 E.U./dL Urine pH 6.5 Procedures/MDM This is a 56-year-old male presenting to the emergency department who recently had a cervical spine surgery about few weeks ago at this facility and complaining of dry mouth and not being able to sleep for the past 3 days. He is also complaining that is more difficult for him to urinate than usual. This is likely due to the adverse reaction of tramadol that he just recently started 3 days ago. I discussed the patient to discontinue that and to follow-up with his primary care physician for further action management. Prescription for Tylenol was given instead. In addition patient states that he just recently stopped his Prozac and wanted his prescription again, I have refilled Prozac for him and discuss to continue seeing his primary care physician for further medications. Patient states that he is going to follow-up with his spine surgeon and needs to have x-rays before he sees them. Cervical spine x-rays have been done and show that he recently had surgery and he has DJD. In addition patient was able to urinate, urinalysis did not show any evidence of infection. There is no evidence of fracture dislocation. Patient stable for discharge to follow-up with his primary care physician and surgeon. I discussed the patient return to the ER for any worsening symptoms. He understands and agrees with this plan. Departure Diagnosis: Primary Impression: Adverse drug reaction Additional Impression: Depression Condition: Stable Patient Instructions: What Is Insomnia?, Tramadol Hydrochloride Oral tablet Referrals: Pascual doctora Additional Instructions: Visite a caitlin mallory para un EXAMEN.Regrese a estas instalaciones si no se mejora ed esperbamos o ed le dijimos. [place] toda la medicina cherri y ed se le indic. Regrese a estas instalaciones si no se mejora ed esperbamos o ed le dijimos. PAULINO STOVALL PA-C Apr 21, 2016 10:21
== END 2016-04-21 09:47 | disposition home or self-care (01) ==
LOC: FTE 06:47
DX: R68.2 Dry mouth, unspecified (principal); F32.9 Major depressive disorder, single episode, unspecified; T40.4X5A Adverse effect of other synthetic narcotics, initial encounter
CPT/HCPCS: 72040; 81001; 81003; 87086; Z7502

== ENCOUNTER 2016-05-14 15:48 | Emergency (ER) | payer OTHER ==
[~2016-05-14] VITALS: Wt 81.0 kg
[~2016-05-14 15:48] MED LIST changes: +FLUO10CA66 PO
[2016-05-14] MEDS ORDERED: HYDR-906 PO (16:19)
--- NOTE | 2016-05-14 16:19 | ERD ---
ER Documentation Chief Complaint Date/Time DATE: 05/14/16 TIME: 16:17 Chief Complaint RIGHT LOWER BACK PAIN RADIATING TO RIGHT LEG HPI This is a 56-year-old male who presents to the emergency room for evaluation of right lower back pain which radiates down to his right leg. The patient states that he has had these symptoms for greater than 1 week duration. He was seen by his primary physician and was given a prescription for tramadol. The patient states that tramadol is making him feel slightly anxious and is not relieving his pain. The patient denies any urinary incontinence or urinary retention associated with this back and leg pain. He came to the ER for further evaluation ROS All systems reviewed and are negative except as per history of present illness. Medications Home Meds Active Scripts Fluoxetine Hcl* (Prozac*) 10 Mg Capsule, 10 MG PO DAILY, #20 CAP Prov:PAULINO STOVALL PA-C 04/21/16 Acetaminophen* (Tylenol*) 325 Mg Tablet, 2 TAB PO Q4 Y for PAIN AND OR ELEVATED TEMP, #30 TAB Prov:PAULINO STOVALL PA-C 04/21/16 Cholecalciferol* (Vitamin D3*) 1,000 Unit Tablet, 1000 UNIT PO DAILY for 30 Days , #30 TAB Prov:CINDY KEY MD 03/26/16 Lactobacillus Acidoph/Bulgaricus* (Floranex*) 1 Each Tablet, 1 TAB PO BID for 10 Days, #20 TAB Prov:CINDY KEY MD 03/26/16 [Hydrocodone/Apap (10/325)] 1 TAB TAB No Conflict Check, 1 TAB PO Q4H Y for PAIN for 1 Day Prov:CINDY KEY MD 03/26/16 Docusate Sodium (Dok) 100 Mg Capsule, 100 MG PO BID for 10 Days, #20 CAP 2 Refills Prov:CINDY KEY MD 03/26/16 Dexamethasone* (Decadron*) 4 Mg Tab, 4 MG PO BID for 2 Days, TAB Prov:CINDY KEY MD 03/26/16 Acetaminophen* (Tylenol*) 325 Mg Tablet, 650 MG PO Q6H Y for PAIN AND OR ELEVATED TEMP for 1 Day, TAB Prov:CINDY KEY MD 03/26/16 Reported Medications Fluoxetine Hcl* (Prozac*) 20 Mg Capsule, 20 MG PO DAILY, CAP 03/16/16 Allergies Allergies: Coded Allergies: No Known Allergy (Unverified , 05/14/16) PMhx/Soc Medical and Surgical Hx: pt denies Surgical Hx History of Surgery: No Anesthesia Reaction: No Hx Neurological Disorder: No Hx Respiratory Disorders: No Hx Cardiac Disorders: No Hx Psychiatric Problems: Yes (ANXIETY) Hx Miscellaneous Medical Probl: Yes (see notes) Hx Alcohol Use: No Hx Substance Use: No Hx Tobacco Use: No Physical Exam Vitals Vital Signs Date Time Temp Pulse Resp B/P Pulse Ox O2 Delivery O2 Flow Rate FiO2 05/14/16 15:55 98.6 97 18 146/99 95 Physical Exam INITIAL VITAL SIGNS: Reviewed by me GENERAL: The patient is well developed and appropriate for usual state of health in no apparent distress HEENT: Pupils equal, round, and reactive to light. EOMI. There is no scleral icterus. NECK: C-spine is soft and supple, there is no meningismus. There is no cervical lymphadenopathy. LUNGS: Clear to auscultation bilaterally. There are no rales, wheezes or rhonchi. HEART: Regular rate and rhythm, no murmurs, clicks, rubs or gallops. ABDOMEN: Soft, non-tender, non-distended. There are bowel sounds in all four quadrants. No rebound or guarding. EXTREMITIES: There is no peripheral cyanosis or edema. No focal swelling or erythema. NEUROLOGICAL: The patient moves all four extremities with 5/5 strength. Cranial nerves II - XII are intact. Normal gait. Alert and oriented SKIN: There is no apparent rash or petechiae. HEME/LYMPHATIC: There is no evidence of excessive bruising or lymphedema. PSYCHIATRIC: The patient does not appear anxious or depressed. Results 24 hrs Current Medications Medications (Trade) Dose Ordered Sig/Hannah Route PRN Reason Start Time Stop Time Status Last Admin Dose Admin Acetaminophen/ Hydrocodone Bitart ([place] (10/325)) 1 tab ONCE ONCE PO 05/14/16 16:30 05/14/16 16:31 Dexamethasone (Decadron) 10 mg ONCE ONCE PO 05/14/16 16:30 05/14/16 16:31 Procedures/MDM This 56-year-old male presents to the ER for evaluation of right lower back pain. The patient does have a history and physical exam consistent with sciatica. His tramadol is not working for him. I advised him to discontinue use of tramadol. He was given Decadron, and [place] in the emergency room. He will be discharged with a prescription for [place] No. 15. I advised him he needs to call his primary care physician to have his medication adjusted. He verbalized understanding. The patient has no signs of cauda equina, no fever, no urinary retention or urinary incontinence. Patient presents today with atraumatic back pain. Although infection, malignancy, GI, , and vascular causes have been considered in this patient, the patient's clinical presentation is most consistent with a musculoskeletal cause. There is neither evidence of any acute neurologic damage, nor of loss of function and thus, advanced imaging studies have been deferred. Patient will be treated conservatively with appropriate pain control precautionary discharge instructions provided. Departure Diagnosis: Primary Impression: Sciatica of right side Condition: Stable JOHNNY MUNOZ DO May 14, 2016 16:19
[2016-05-14] MEDS ORDERED: DEXAMETHASONE 10 MG/ML 1 ML INJ PO ONE (16:30)
[2016-05-14] MEDS ORDERED: HYDROCODONE/APAP (10/325) TAB PO ONE (16:30)
== END 2016-05-14 17:01 | disposition home or self-care (01) ==
LOC: FTE 15:48
DX: M54.31 Sciatica, right side (principal)
CPT/HCPCS: 99283; J1100

== ENCOUNTER 2016-05-17 13:23 | Emergency (ER) | payer OTHER ==
[~2016-05-17] VITALS: Wt 82.7 kg
[~2016-05-17 13:23] MED LIST changes: +HYDR-906 PO
[2016-05-17] MEDS ORDERED: TRIAMCINOLONE ACET 40 MG/ML INJ INJ STA (14:03)
[2016-05-17] MEDS ORDERED: KETOROLAC 60 MG INJ IM STA (14:03)
[2016-05-17] MEDS ORDERED: BUPIVACAINE 0.25% (MPF) 10 ML 10 ML VIAL INJ ONE (14:30)
[2016-05-17] MEDS ORDERED: LIDOCAINE 1% (MDV) 20 ML INJ SC ONE (14:30)
--- NOTE | 2016-05-17 14:32 | ERD ---
ER Documentation Chief Complaint Date/Time DATE: 05/17/16 TIME: 14:30 Chief Complaint back pain HPI This 56-year-old male presents with a history of low back pain radiating down to his left leg and intermittently his right leg. He has a history of recent cervical disc surgery. Denies any history of trauma. He was hoping to receive trigger point injection in his lower back today as he prefers not to take oral pain medication as he feels it is been taking too much since his recent surgery and his new low back pain. Denies any bowel or bladder incontinence, fevers, urinary complaints, additional symptoms. ROS All systems reviewed and are negative except as per history of present illness. Medications Home Meds Active Scripts Hydrocodone/Acetaminophen ([place] 5-325 Tablet) 1 Each Tablet, 1 TAB PO Q6H Y for PAIN, #15 TAB Prov:JOHNNY MUNOZ DO 05/14/16 Fluoxetine Hcl* (Prozac*) 10 Mg Capsule, 10 MG PO DAILY, #20 CAP Prov:PAULINO STOVALL PA-C 04/21/16 Acetaminophen* (Tylenol*) 325 Mg Tablet, 2 TAB PO Q4 Y for PAIN AND OR ELEVATED TEMP, #30 TAB Prov:PAULINO STOVALL PA-C 04/21/16 Cholecalciferol* (Vitamin D3*) 1,000 Unit Tablet, 1000 UNIT PO DAILY for 30 Days , #30 TAB Prov:CINDY KEY MD 03/26/16 Lactobacillus Acidoph/Bulgaricus* (Floranex*) 1 Each Tablet, 1 TAB PO BID for 10 Days, #20 TAB Prov:CINDY KEY MD 03/26/16 [Hydrocodone/Apap (10/325)] 1 TAB TAB No Conflict Check, 1 TAB PO Q4H Y for PAIN for 1 Day Prov:CINDY KEY MD 03/26/16 Docusate Sodium (Dok) 100 Mg Capsule, 100 MG PO BID for 10 Days, #20 CAP 2 Refills Prov:CINDY KEY MD 03/26/16 Dexamethasone* (Decadron*) 4 Mg Tab, 4 MG PO BID for 2 Days, TAB Prov:CINDY KEY MD 03/26/16 Acetaminophen* (Tylenol*) 325 Mg Tablet, 650 MG PO Q6H Y for PAIN AND OR ELEVATED TEMP for 1 Day, TAB Prov:CINDY KEY MD 03/26/16 Reported Medications Fluoxetine Hcl* (Prozac*) 20 Mg Capsule, 20 MG PO DAILY, CAP 03/16/16 Allergies Allergies: Coded Allergies: No Known Allergy (Unverified , 05/14/16) PMhx/Soc History of Surgery: No Anesthesia Reaction: No Hx Neurological Disorder: No Hx Respiratory Disorders: No Hx Cardiac Disorders: No Hx Psychiatric Problems: Yes (ANXIETY) Hx Miscellaneous Medical Probl: Yes Hx Alcohol Use: No Hx Substance Use: No Hx Tobacco Use: No Smoking Status: Never smoker Physical Exam Vitals Vital Signs Date Time Temp Pulse Resp B/P Pulse Ox O2 Delivery O2 Flow Rate FiO2 05/17/16 13:25 99.5 66 20 114/74 99 Physical Exam Const: [] Alert, [id number] per Head: Atraumatic Eyes: Normal Conjunctiva ENT: Normal External Ears, Nose and Mouth. Neck: Full range of motion..~ No meningismus. Resp: Clear to auscultation bilaterally Cardio: Regular rate and rhythm, no murmurs Abd: Soft, non tender, non distended. Normal bowel sounds Skin: No petechiae or rashes Back: No midline or flank tenderness. There is some tenderness and spasm in the bilateral lumbar paraspinous muscles L4-5 area. There is no midline tenderness or deformities no erythema or skin changes. Ext: No cyanosis, or edema Neur: Awake and alert Psych: Normal Mood and Affect Results 24 hrs Current Medications Medications (Trade) Dose Ordered Sig/Hannah Route PRN Reason Start Time Stop Time Status Last Admin Dose Admin Ketorolac Tromethamine (Toradol) 60 mg ONCE STAT IM 05/17/16 14:03 05/17/16 14:04 DC 05/17/16 14:12 Triamcinolone Acetonide (Kenalog-40) 40 mg ONCE STAT INJ 05/17/16 14:03 05/17/16 14:04 DC Lidocaine (Xylocaine 1% (Mdv) 20 ml) 20 ml ONCE ONCE SC 05/17/16 14:30 05/17/16 14:31 Bupivacaine HCl (Marcaine 0.25% (Mpf) 10 ml) 10 ml ONCE ONCE INJ 05/17/16 14:30 05/17/16 14:31 Procedures/MDM Patient presents with acute on chronic low back pain with some mild signs of sciatica. Patient will be administered trigger point injections as requested. Patient was counseled on the risks of trigger point injections including but not limited to infection and atrophy or skin changes. Patient wishes to proceed Procedure note-lower back area was prepped with alcohol. Presently 30 mg Kenalog total 2 cc of Marcaine and 3 cc of lidocaine injected in multiple sites bilaterally and areas of spasm and patient tolerated procedure well. Patient was discharged home instructions to continue his current medications at home regimen of exercises to return for new or worsening symptoms or with his treating orthopedist and primary doctor. Signs or symptoms do not suggest neurologic deficit, cauda equina syndrome, epidural abscess. The patient was stable with no new complaints during the ER course. Clinically, there is no current evidence to suggest meningitis, sepsis, acute abdomen, pneumonia, acute coronary syndrome, pulmonary embolism, or any other emergent condition appearing to require further evaluation or hospitalization. The patient should certainly return for any new or worsening symptoms per the aftercare instructions. They should otherwise follow-up with her primary care doctor for reevaluation this week. Departure Diagnosis: Primary Impression: Back pain Back pain location: low back pain Chronicity: acute Back pain laterality: bilateral Sciatica presence: with sciatica Sciatica laterality: bilateral sciatica Qualified Code: M54.42 - Acute bilateral low back pain with bilateral sciatica Condition: Stable Patient Instructions: Back Exercises, Lumbar, Back Pain (Acute Or Chronic) Additional Instructions: Follow-up with primary doctor for further evaluation and management. Recheck otherwise for new or worsening symptoms. RAMIRO SINGH MD May 17, 2016 14:32
== END 2016-05-17 15:13 | disposition home or self-care (01) ==
LOC: FTE 13:23
DX: M54.42 Lumbago with sciatica, left side (principal); M54.41 Lumbago with sciatica, right side
CPT/HCPCS: 20552; J1885; 96372

== ENCOUNTER → 2016-05-26 | Outpatient (CLI) | payer OTHER ==
--- NOTE | 2016-05-26 18:13 | HKNOTE ---
DATE OF SERVICE: 05/26/2016 INTERVAL HISTORY: The patient presents today for a followup evaluation on his left knee. He continues to have some radicular symptoms down his right leg and was seen in the emergency department at [facility] for his condition. He has still not seen a back specialist. He continued to have knee pain and he is using assistive devices to ambulate. He is here today for a cortisone injection to his left knee. PHYSICAL EXAMINATION: Today, he is alert and oriented x4 and in no acute distress. He does ambulate with a cane. Left knee demonstrates varus deformity. He does have 2+ patellofemoral crepitus. There is no significant effusion. He does have pain with passive range of motion. Varus and valgus forces are stable. Compartments were soft. He is neurovascularly intact distally. ASSESSMENT: Bilateral knee osteoarthritis. PLAN: The patient underwent a cortisone injection to his left knee today. We do have authorization for his right knee. We will see him back in 1 week to perform a right knee cortisone injection as well. Additionally, given his radicular symptoms down his right leg which was found to be neurogenic in origin , he will be referred to a criminal intelligence specialist. Authorization has been requested from office for appropriate referrals. We will see the patient back in 1 week for a cortisone injection to his right knee. I did advise the patient to take hhlq-yxi-[id number] anti-inflammatories and apply ice as needed. PROCEDURE NOTE: The procedure was explained to the patient and informed consent was obtained prior to starting the procedure. The area was prepped and draped in sterile fashion using Betadine. The skin was anesthetized using ethyl chloride and 9 mL of Xylocaine and 1 mL of Depo-Medrol were injected into the superolateral portion into the left knee. A sterile bandage was then applied. The patient tolerated the procedure well. All questions and concerns were addressed at the time of the procedure. Dictated By: ASTRID JOHNS/GURU Conf#: [id number] DID#: [id number] BERNARDINO
== END | disposition home or self-care (01) ==
LOC: HKI 10:46
PROVIDERS: ATTEND Orthopaedic Surgery
DX: M17.0 Bilateral primary osteoarthritis of knee (principal)
CPT/HCPCS: 20610; J1030

== ENCOUNTER 2016-08-18 14:33 | Emergency (ER) | payer OTHER ==
[~2016-08-18] VITALS: Ht 167.6 cm; Wt 65.0 kg
[2016-08-18 14:38] VITALS: Ht 167.6 cm; Wt 65.0 kg
[2016-08-18] MEDS ORDERED: KETOROLAC 30 MG INJ IM STA (15:42)
[2016-08-18] MEDS ORDERED: HYDR-906 PO (15:43)
--- NOTE | 2016-08-18 22:55 | ERD ---
ER Documentation Chief Complaint Date/Time DATE: 08/18/16 TIME: 22:50 Chief Complaint C/O BACK OF HEAD AND HIP PAIN. HPI 56-year-old man complains of low back pain and neck pain with associated paresthesias to both hands. He has had these symptoms for about 1 year. He is requesting Barbeau prescription. He denies weakness in his arms or legs, no difficulty with bowel or bladder movements, no saddle distribution anesthesia, no fevers or chills, no recent weight loss. ROS All systems reviewed and are negative except as per history of present illness. Medications Home Meds Active Scripts Hydrocodone/Acetaminophen ([place]be[place] 5-325 Tablet) 1 Each Tablet, 1 TAB PO TID Y for PAIN, #9 TAB Prov:SANG RIVERA MD 08/18/16 Hydrocodone/Acetaminophen ([place] 5-325 Tablet) 1 Each Tablet, 1 TAB PO Q6H Y for PAIN, #15 TAB Prov:JOHNNY MUNOZ DO 05/14/16 Fluoxetine Hcl* (Prozac*) 10 Mg Capsule, 10 MG PO DAILY, #20 CAP Prov:PAULINO STOVALL PA-C 04/21/16 Acetaminophen* (Tylenol*) 325 Mg Tablet, 2 TAB PO Q4 Y for PAIN AND OR ELEVATED TEMP, #30 TAB Prov:PAULINO STOVALL PA-C 04/21/16 Cholecalciferol* (Vitamin D3*) 1,000 Unit Tablet, 1000 UNIT PO DAILY for 30 Days , #30 TAB Prov:CINDY KEY MD 03/26/16 Lactobacillus Acidoph/Bulgaricus* (Floranex*) 1 Each Tablet, 1 TAB PO BID for 10 Days, #20 TAB Prov:CINDY KEY MD 03/26/16 [Hydrocodone/Apap (10/325)] 1 TAB TAB No Conflict Check, 1 TAB PO Q4H Y for PAIN for 1 Day Prov:CINDY KEY MD 03/26/16 Docusate Sodium (Dok) 100 Mg Capsule, 100 MG PO BID for 10 Days, #20 CAP 2 Refills Prov:CINDY KEY MD 03/26/16 Dexamethasone* (Decadron*) 4 Mg Tab, 4 MG PO BID for 2 Days, TAB Prov:CINDY KEY MD 03/26/16 Acetaminophen* (Tylenol*) 325 Mg Tablet, 650 MG PO Q6H Y for PAIN AND OR ELEVATED TEMP for 1 Day, TAB Prov:CINDY KEY MD 03/26/16 Reported Medications Fluoxetine Hcl* (Prozac*) 20 Mg Capsule, 20 MG PO DAILY, CAP 03/16/16 Allergies Allergies: Coded Allergies: No Known Allergy (Unverified , 05/14/16) PMhx/Soc Chronic cervical disc disease and myelopathy, depression, anxiety, prediabetes, hypertension, chronic back pain History of Surgery: Yes (lumbar & cervical sx) Anesthesia Reaction: No Hx Neurological Disorder: No Hx Respiratory Disorders: No Hx Cardiac Disorders: No Hx Psychiatric Problems: Yes (ANXIETY) Hx Miscellaneous Medical Probl: No Hx Alcohol Use: No Hx Substance Use: No Hx Tobacco Use: No Smoking Status: Never smoker FmHx Family History: No diabetes Physical Exam Vitals Vital Signs Date Time Temp Pulse Resp B/P Pulse Ox O2 Delivery O2 Flow Rate FiO2 08/18/16 14:38 98.5 75 19 134/81 96 Physical Exam GENERAL: Well-developed, well-nourished, well-hydrated, in no apparent distress , looks nontoxic in appearance HEENT: Moist mucous membranes, pink conjunctiva, no cervical spine tenderness or step-off deformities, no goiter, no jaundice or icterus, extraocular movements intact without pain. No submandibular induration, and no pharyngeal erythema NEURO: Alert and oriented 3, cranial nerves II through XII intact bilaterally, pupils equal round reactive to light, no focal deficits or facial asymmetry, sensation intact distally Strength 5/5 in upper and lower extremities bilaterally CARDIAC: Regular rate and rhythm, no murmurs rubs or gallops LUNGS: Clear bilaterally no wheezing crackles or stridor ABDOMEN: Soft nontender, no guarding, no rigidity, no rebound, no psoas sign no obturator sign. Normoactive bowel sounds SKIN: Warm and dry to touch, no abrasions, contusions, or hematomas, no lacerations, no ecchymosis, no target lesions, and without ulcers EXTREMITIES: No clubbing cyanosis or edema, calves are bilaterally symmetrical, no Homans sign, no popliteal cord sign. Distal pulses equal and bilateral PSYCH: Normal affect without agitation or irritability Results 24 hrs Current Medications Medications (Trade) Dose Ordered Sig/Hannah Route PRN Reason Start Time Stop Time Status Last Admin Dose Admin Ketorolac Tromethamine (Toradol) 30 mg ONCE STAT IM 08/18/16 15:42 08/18/16 15:43 DC 08/18/16 15:52 Procedures/MDM Patient received Toradol 30 mg intramuscular injection for pain control. I reviewed his past medical records as well as the neurosurgical consultation/ report. He does have a history of cervical disc disease with associated paresthesias. I recommend that he follow-up with the neurosurgeon and gave him that his neurosurgeons address and phone number Differential diagnoses considered, included but not limited to spinal epidural abscess, acute spinal cord compression, cauda equina syndrome, conus medullaris , aortic dissection, abdominal aortic aneurysm, sepsis, stroke, meningitis, encephalitis, pneumonia, appendicitis, cholecystitis, bowel obstruction, pyelonephritis, nephrolithiasis, cystitis, as well as metabolic, hematologic, and electrolyte abnormalities. As well as abscess, cellulitis, fractures, and dislocations. Patient feels much better at this time, and vital signs are normal, symptoms have improved. I did give strict instructions to return to the ED if symptoms continue or worsen, patient will otherwise follow-up with primary care physician. Patient understood instructions and agreed to plan. Disclaimer: Inadvertent spelling and grammatical errors are likely due to EHR/ dictation software use and do not reflect on the overall quality of patient care. Also, please note that the electronic time recorded on this note does not necessarily reflect the actual time of the patient encounter. Departure Diagnosis: Primary Impression: Cervical radiculopathy Condition: Good Patient Instructions: Kate, Cervical SANG RIVERA MD Aug 18, 2016 22:55
== END 2016-08-18 15:59 | disposition home or self-care (01) ==
LOC: E/R 14:33
DX: M54.12 Radiculopathy, cervical region (principal); I10 Essential (primary) hypertension
CPT/HCPCS: 96372; 99284; J1885

== ENCOUNTER 2017-02-11 12:38 | Emergency (ER) | END 2017-02-11 14:54 | disposition home or self-care (01) ==

== ENCOUNTER 2017-08-27 09:30 | Emergency (ER) | END 2017-08-27 11:35 | disposition home or self-care (01) ==

== ENCOUNTER 2017-12-04 13:11 | Emergency (ER) | END 2017-12-04 16:11 | disposition home or self-care (01) ==